=== PATIENT | female | born 1955 | race Caucasian/White ===

== ENCOUNTER 2020-05-20 02:39 | Outpatient (CLI) | payer OTHER, SELFPAY ==
[2020-05-20 18:57] LABS: SARS-CoV-2 RNA PCR Negative
== END 2020-05-20 02:40 | disposition home or self-care (01) ==
LOC: ANHCOVIDDT 02:39
PROVIDERS: PCP Internal Medicine; Visit Provider Internal Medicine Gastroenterology
DX: Z01.812 Encounter for preprocedural laboratory examination (principal); Z11.59 Encounter for screening for other viral diseases
CPT/HCPCS: 87635; C9803; U0003

== ENCOUNTER 2020-05-23 00:57 | Day surgery (SDC) | payer OTHER, SELFPAY ==
[2020-05-16 11:19] VITALS: BMI 31.6
[2020-05-23 06:30] VITALS: BP 156/82; PULSE 67; RESP 18; TEMP 36.7; O2SAT 99
[2020-05-23] MEDS: LACTATED RINGERS 1,000 ML 150 ML IV CONT (06:37)
--- NOTE | 2020-05-23 07:04 | WPDANESEPPF ---
Anes - Initial Pre Proc Eval Procedure: Operation Date: 05/23/20 07:30 Proposed Procedures p Screening Colonoscopy - Reginaldo Kate MD Date/Time: 05/23/20 07:04 Surgeon: Reginaldo Kate MD Pre Op Diagnosis: neoplasm screening, hx colon polyps Patient Data Age: 65 Gender: F Height: 5 ft 1 in Weight: 76.6 kg Last Vital Signs Temp 98.0 F 05/23/20 06:30 Pulse 67 05/23/20 06:30 Resp 18 05/23/20 06:30 BP 156/82 H 05/23/20 06:30 Pulse Ox 99 05/23/20 06:30 Allergies Allergy/AdvReac Type Severity Reaction Status Date / Time poison valencia extract Allergy Intermediate RASH, Verified 05/23/20 06:22 ALWAYS REQUIRES PREDNISONE Home Medications Medication Instructions Recorded Confirmed Type cholecalciferol (vitamin D3) 1,250 1,250 mcg PO DAILY 10/29/19 05/23/20 History mcg (50,000 unit) capsule niacin 500 mg tablet,extended 500 mg PO QAM 10/29/19 05/23/20 History release omega-3 fatty acids 1,000 mg 2,000 mg PO BID cap 10/29/19 05/23/20 History capsule Caltrate 600 plus D 600 mg PO DAILY 05/16/20 05/23/20 History ginkgo biloba 120 mg PO DAILY 05/16/20 05/23/20 History lutein 40 mg PO DAILY 05/16/20 05/23/20 History magnesium oxide 400 mg PO DAILY 05/16/20 05/23/20 History multivit with min-folic acid 0.4 mg PO DAILY 05/16/20 05/23/20 History [Adult One Daily Multivitamin] Patient hx anesthesia problems: none Family hx anesthesia problems: none PMFSH Social History Social History Smoking status: Never smoker Smoking end date: 10/14/78 Alcohol intake: current Gender identity (if verbalized by the patient): Female Anes - Eval Final PreProcedure Day of Procedure 05/23/20 07:04 Patient weight: overweight Heart: regular rate and rhythm Lungs: clear to auscultation Airway: Mallampati scale class II Neurological: alert and oriented Last oral intake: >/= 8 hours ASA classification: II Emergent: no Anesthetic plan: proceed Anesthesia type and monitoring: general GIVS and standard monitoring Informed Consent: The patient's anesthetic plan and its attendant risks and benefits were discussed with the patient/family/POA. Questions were solicited and answers provided to the satisfaction of the patient/family/POA.
[2020-05-23] MEDS: SIMETHICONE ORAL SUSPENSION 20 MG/0.3 ML 30 ML BOTTLE 0.6 ML IRRIGATION (07:35)
--- NOTE | 2020-05-23 07:46 | P.CONGI_ITS ---
Assessment and Plan Assessment and plan (1) Hx of colonic polyps: Code(s): Z86.010 - Personal history of colonic polyps Status: Acute Assessment and Plan: Patient has a history of large colon polyp requiring surgical resection 2005. Patient presents today for surveillance colonoscopy. Advised surveillance colonoscopy at 5 year intervals. High-fiber diet suggested. GI Consult Note Consult date/time: 05/23/20 07:46 HPI: Sarah Desai is a 65 year old female seen in evaluation at the request of Dr Rommel Lamas.Patient presents for surveillance colonoscopy. Patient's current weight appetite bowel movements are normal. She has a history of a large colon polyp removed surgically by Dr. Will in 2005. Her current weight appetite bowel movements are normal. Last exam 5 years ago was unremarkable. She states that there is no blood in her stools. Her bowel habits are regular. Her weight has remained stable. Review of Systems Review of Systems: All systems reviewed & are unremarkable except as noted in HPI and below PMFSH Past Medical History Medical History Hx of colonic polyps Vitamin D deficiency Family History Family History Mother Family history of malignant neoplasm of ovary Family history of malignant neoplasm of uterus Father Family history of alcoholism Grandparent Cerebrovascular accident Social History Social History Smoking status: Never smoker Smoking end date: 10/14/78 Alcohol intake: current Gender identity (if verbalized by the patient): Female Meds Home Medications and Allergies Home Medications Medication Instructions Recorded Confirmed Type cholecalciferol (vitamin D3) 1,250 1,250 mcg PO DAILY 10/29/19 05/23/20 History mcg (50,000 unit) capsule niacin 500 mg tablet,extended 500 mg PO QAM 10/29/19 05/23/20 History release omega-3 fatty acids 1,000 mg 2,000 mg PO BID cap 10/29/19 05/23/20 History capsule Caltrate 600 plus D 600 mg PO DAILY 05/16/20 05/23/20 History ginkgo biloba 120 mg PO DAILY 05/16/20 05/23/20 History lutein 40 mg PO DAILY 05/16/20 05/23/20 History magnesium oxide 400 mg PO DAILY 05/16/20 05/23/20 History multivit with min-folic acid 0.4 mg PO DAILY 05/16/20 05/23/20 History [Adult One Daily Multivitamin] Allergies Allergy/AdvReac Type Severity Reaction Status Date / Time poison valencia extract Allergy Intermediate RASH, Verified 05/23/20 06:22 ALWAYS REQUIRES PREDNISONE Vital Signs Vital Signs - 24 hr 05/23/20 06:30 Temperature 98.0 F Pulse Rate 67 Respiratory Rate 18 Blood Pressure 156/82 H Pulse Oximetry 99 Exam Narrative: Exam Narrative: Physical exam reveals patient to be alert. Vital signs stable. HEENT exam unremarkable. Lungs are clear to auscultation and per cussion. Heart is without murmur or extra sounds. Abdominal exam bowel sounds are present soft nontender with no hepatosplenomegaly. Digital external rectal exam normal.
[2020-05-23 07:48] VITALS: BP 110/57; PULSE 63; RESP 18; O2SAT 96
[2020-05-23 07:58] VITALS: BP 109/57; PULSE 62; RESP 14; O2SAT 96
[2020-05-23 08:08] VITALS: BP 118/68; PULSE 61; RESP 14; O2SAT 100
== END 2020-05-23 08:40 | disposition home or self-care (01) ==
PROVIDERS: PCP Internal Medicine; Visit Provider Internal Medicine Gastroenterology
PROC: 0DJD8ZZ Inspection of Lower Intestinal Tract, Via Natural or Artificial Opening Endoscopic (ICD-10-PCS; CPT 45378; principal; 2020-05-23 07:30)
DX: Z12.11 Encounter for screening for malignant neoplasm of colon (principal); D12.5 Benign neoplasm of sigmoid colon; K63.5 Polyp of colon; E55.9 Vitamin D deficiency, unspecified
CPT/HCPCS: 45385; 88305; J2704; J7120

== ENCOUNTER → 2020-12-02 09:14 | Outpatient (CLI) | payer OTHER, SELFPAY ==
--- NOTE | ~2020-12-02 | XR_ITS ---
XR ankle RT min 3V DATE: 12/02/2020 09:34 INDICATION: Fall. Right ankle injury, pain TECHNIQUE: 4 views COMPARISON: None FINDINGS: There is a nondisplaced transverse fracture of the lateral malleolus. There is soft tissue swelling of the ankle, greater laterally. The medial and posterior malleoli are intact. Ankle mortise is preserved. Prominent plantar calcaneal enthesopathy. IMPRESSION: Nondisplaced transverse lateral malleolar fracture Reviewed, dictated and finalized at location B. ONS DESIGNER
== END ==
PROVIDERS: PCP Internal Medicine; Visit Provider Internal Medicine
DX: S82.64XA Nondisplaced fracture of lateral malleolus of right fibula, initial encounter for closed fracture (principal); W19.XXXA Unspecified fall, initial encounter
CPT/HCPCS: 73610

== ENCOUNTER → 2021-01-02 10:57 | Outpatient (CLI) | payer OTHER, SELFPAY ==
[2021-01-02 13:37] LABS: Influenza Control Positive
[2021-01-03 00:22] LABS: SARS-CoV-2 RNA PCR Negative
== END ==
PROVIDERS: PCP Internal Medicine; Visit Provider Internal Medicine
DX: R68.89 Other general symptoms and signs (principal); Z20.822 Contact with and (suspected) exposure to COVID-19
CPT/HCPCS: 87804; C9803; U0003; U0005

== ENCOUNTER → 2021-01-04 10:00 | Outpatient (CLI) | payer OTHER, SELFPAY ==
[2021-01-04 23:58] LABS: SARS-CoV-2 RNA PCR Negative
== END ==
PROVIDERS: PCP Internal Medicine; Visit Provider Internal Medicine
DX: R43.2 Parageusia (principal); R50.9 Fever, unspecified; Z20.822 Contact with and (suspected) exposure to COVID-19
CPT/HCPCS: C9803; U0003; U0005

== ENCOUNTER 2021-03-08 13:10 | Outpatient (CLI) | payer MEDICARE, SELFPAY ==
--- NOTE | ~2021-03-08 | US_ITS ---
EXAMINATION: US abdomen limited DATE: 03/08/2021 13:38 INDICATION: Other specified abnormal findings of blood chemistry. TECHNIQUE: Multiple grayscale and Doppler ultrasound images of the abdomen were obtained. COMPARISON: None FINDINGS: The visualized portions of the head, body, and tail of the pancreas are normal. The liver i s normal without focal lesion. No liver surface nodularity. There is normal flow in main portal vein. The gallbladder is normal in size. No gallstones or gallbladder wall thickening. There is no sonogra phic Riggs sign. The common duct is normal and measures 3 mm. IMPRESSION: 1. Normal right upper quadrant ultrasound. Reviewed, dictated and finalized at location B.
== END 2021-03-08 13:11 | disposition home or self-care (01) ==
LOC: ANHIMG 13:12
PROVIDERS: PCP Internal Medicine; Visit Provider Internal Medicine
DX: R79.89 Other specified abnormal findings of blood chemistry (principal)
CPT/HCPCS: 76705

== ENCOUNTER 2021-08-28 08:16 | Outpatient (CLI) | payer MEDICARE, SELFPAY ==
--- NOTE | ~2021-08-28 | XR_ITS ---
XR ankle LT 2V DATE: 08/28/2021 08:35 INDICATION: Medial ankle pain for 6 weeks. No injury. TECHNIQUE: 2 views COMPARISON: None FINDINGS: Mild medial soft tissue swelling. There is osteoarthritis at the tibiotalar joint. Prominent plantar and mild posterior calcaneal enthesopathy. No fracture or dislocation of the ankle or disruption of ankle mortise. No periosteal reaction or bon e destruction. 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 ET WORKER
== END 2021-08-28 08:17 | disposition home or self-care (01) ==
PROVIDERS: PCP Internal Medicine; Visit Provider Internal Medicine
DX: M25.572 Pain in left ankle and joints of left foot (principal); M77.32 Calcaneal spur, left foot; M79.89 Other specified soft tissue disorders
CPT/HCPCS: 73600

== ENCOUNTER 2022-06-11 10:31 | Outpatient (CLI) | payer MEDICARE, SELFPAY ==
--- NOTE | ~2022-06-11 | XR_ITS ---
XR chest 2V DATE: 06/11/2022 10:52 INDICATION: Cough, chest tightness, drainage for 2 weeks TECHNIQUE: PA and lateral views COMPARISON: 12/24/2018 PA and lateral chest FINDINGS: Normal heart size. No hilar or mediastinal enlargement. Persistent mild bilateral pulmonary hyperinflation. No pulmonary infiltrate or consolidation, pleural effusion or pulmonary vascular con gestion or pneumothorax. There is mild thoracic dextroscoliosis. Osteopenia. IMPRESSION: No active cardiopulmonary disease Reviewed, dictated and finalized at location B.
== END 2022-06-11 10:32 | disposition home or self-care (01) ==
PROVIDERS: PCP Internal Medicine; Visit Provider Internal Medicine
DX: R05.9 Cough, unspecified (principal)
CPT/HCPCS: 71046

== ENCOUNTER → 2022-10-11 08:33 | Outpatient (CLI) | payer MEDICARE, SELFPAY ==
--- NOTE | ~2022-10-11 | CT_ITS ---
EXAMINATION: CT sinus wo con DATE: 10/11/2022 09:07 INDICATION: Chronic sinusitis TECHNIQUE: Computed tomography (CT) of the paranasal sinuses was performed without intravenous contra st. The dose-length product (DLP) was 371.61 mGy-cm. Iterative reconstruction was used. COMPARISON: None FINDINGS: There is normal development and pneumatization of the paranasal sinuses. There is mild muco bruna thickening in the lateral aspect of the left frontal sinus. There is minimal opacification in the posterior aspect of the right ethmoidal air cells. Mild mucosal thickening is seen inferiorly in the left maxillary sinus. The paranasal sinuses are otherwise clear. The bilateral ostiomeatal complexes are patent. Visualized soft tissues are unremarkable. IMPRESSION: 1. Mild sinus disease as detailed above. Reviewed, dictated and finalized at location L. ILITY CLAIMS REPRESENTATIVE
== END ==
PROVIDERS: PCP Internal Medicine; Visit Provider Internal Medicine
DX: J32.9 Chronic sinusitis, unspecified (principal)
CPT/HCPCS: 70486

== ENCOUNTER 2023-01-28 08:00 | Outpatient (CLI) | payer MEDICARE, SELFPAY ==
--- NOTE | ~2023-01-28 | XR_ITS ---
XR sinus min 3V DATE: 01/28/2023 08:20 INDICATION: Chronic right sinusitis TECHNIQUE: lima Leal, lateral, submental vertical views COMPARISON: None FINDINGS: There is mild mucoperiosteal thickening within the maxillary sinuses with suggestion of an air-fluid level on the right. The frontal, ethmoid and sphenoid sinuses appear unremarkable. The mast oid air cells appear normally developed and aerated. Normal sella turcica. IMPRESSION: Bilateral maxillary sinus mucoperiosteal thickening, possible right maxillary sinus air-f luid level Reviewed, dictated and finalized at location B. IMPRESSION: Bilateral maxillary sinus mucoperiosteal thickening, possible right maxillary sinus air-fluid level
== END 2023-01-28 08:01 | disposition home or self-care (01) ==
LOC: ANHIMG 08:06
PROVIDERS: PCP Internal Medicine; Visit Provider Internal Medicine
DX: R44.8 Other symptoms and signs involving general sensations and perceptions (principal); J32.9 Chronic sinusitis, unspecified
CPT/HCPCS: 70220

== ENCOUNTER 2023-04-11 01:03 | Day surgery (SDC) | payer MEDICARE, SELFPAY ==
--- NOTE | 2023-04-04 08:45 | PC.NURSE ---
Report to the Outpatient Waiting Room, entrance under the green pavilion located off [facility], at time __0830 on date __04/11/23 . Planned Procedure Time: __1030 . Time changes happen often and if your time is changed the preop area will call you the afternoon before. - You and your visitor will be asked to self-screen and do not enter if you have any COVID symptoms. - A mask is optional within the hospital at this time. Patients may have clear liquids (water, carbonated beverages, clear teas, apple juice) until 3 hours prior to surgery with a maximum of 20 ounces. - No food from midnight until time of surgery - Infants may have breast milk until 4 hours before surgery, infant formula 6 hours prior to surgery. - Children will be allowed to drink immediately following surgery. If applicable, please bring a bottle or sippy cup to assist with drinking. Juice, water, soda, and popsicles are readily available. For infants on formula, please bring formula the day of surgery. Pacifiers are allowed. Take the following medications with a SIP of water the morning of surgery: ____NONE DO NOT STOP ANY OF YOUR OTHER PRESCRIPTION MEDICATIONS PRIOR TO SURGERY ?EXCEPT THE FOLLOWING Medications to discontinue per physician ___ALL VITAMINS/SUPPLEMENTS 3 DAYS PRE OP.LAST DOSE 04/08/23 Please no make-up, nail lithuanian, hairspray, perfume, deodorant, or body powder the day of surgery. No jewelry (including any body piercings) or valuables the day of surgery, leave them at home. Please take a shower or bath the night before, or the morning of, surgery with an antibacterial soap. Wear comfortable, loose fitting clothing. Children are encouraged to wear pajamas. - Jewelry must be removed prior to entering the operating room. Rings and piercings that are not removed may be cut off. - The hospital will not accept responsibility for valuables. - Please leave all valuables, including medications, at home the day of surgery. If you are going home after surgery, a licensed driver supervisor must drive you home. - NO public transportation without another adult if you receive anesthesia. - We recommend that an adult stay with you for 24 hours following discharge. - We also recommend that you do not drive, make important decision, drink alcoholic beverages, or take any drugs that were not prescribed by your health care provider for at least 24 hours after your discharge time. For Pediatric surgeries, we recommend two adults accompany the child home. Follow any additional instructions given to you from your surgeon. If you or anyone in your household have experienced Covid symptoms in the past week, please notify your surgeon or the nurse liaison at the phone number below for possible testing. Telephone instructions given to ___PATIENT and asked if any additional questions and then verbalized understanding. Patient advised to call surgeon office or pre surgery nurse liaison [phone] if any additional questions.
[2023-04-04 08:51] VITALS: BMI 30.2
[2023-04-11] VITALS (8 sets, daily range): BP systolic 132–166; BP diastolic 75–88; PULSE 56–65; RESP 10–16; TEMP 36.1–36.3; O2SAT 100
--- NOTE | ~2023-04-11 | XR_ITS ---
EXAMINATION: XR surgery orthopedic DATE: 04/11/2023 12:17 INDICATION: Orthopedic procedure at the left foot TECHNIQUE: 4 fluoroscopic images of the left forefoot were obtained during procedure performed by Dr. Stanton. Radiologist was not present for the imaging or procedure. The amount of fluoroscopy time us ed during this procedure was 0.1 minutes. COMPARISON: 03/20/2023 FINDINGS: Initial image demonstrates a realignment chevron osteotomy at the neck of the first metatarsal. Subse quent images demonstrate a medial sided closing wedge osteotomy with medial sided staple fixation at the proximal metadiaphysis of the first proximal phalanx. Prior hallux valgus is reduced with near no rmal alignment to the axis of the first ray on the final images. No fractures identified. Mild polyar ticular osteoarthritis at the first metatarsophalangeal and a few interphalangeal joints. IMPRESSION: 1. Left hallux valgus correction with realignment osteotomies at the first metatarsal and first proxi mal phalanx. See procedure note for further detail. Reviewed, dictated and finalized at location A. IMPRESSION: 1. Left hallux valgus correction with realignment osteotomies at the first meta tarsal and first proximal phalanx. See procedure note for further detail.
--- NOTE | 2023-04-11 07:10 | WPDHPUPDATE1 ---
History and Physical Update Update Date/Time: 04/11/23 07:10 History and Physical has been reviewed, including an updated exam of the patient. There are NO changes in the patient's condition. Risks, benefits, and alternatives have been discussed and questions answered. Patient agrees to proceed with procedure.
[2023-04-11] MEDS: ACETAMINOPHEN 500 MG TABLET 1000 MG PO (08:45)
[2023-04-11] MEDS: LACTATED RINGERS 1,000 ML 30 ML IV CONT (09:00)
[2023-04-11] MEDS: KETOROLAC 15 MG/ML VIAL (*BKC) IV PUSH (09:14)
--- NOTE | 2023-04-11 10:01 | WPDANESEPPF ---
Anes - Initial Pre Proc Eval Procedure: Operation Date: 04/11/23 10:30 Proposed Procedures p Left Hallux Valgus Correction - Yobani Stanton MD s First Metatarsal Osteotomy, Possible Phalangeal Osteotomy - Yobani Stanton MD Date/Time: 04/11/23 10:01 Surgeon: Yobani Stanton MD Pre Op Diagnosis: Lt Hallux Valgus Patient Data Age: 68 Gender: F Height: 1.57 m Weight: 75.9 kg Last Vital Signs Temp 36.3 C L 04/11/23 08:51 Pulse 64 04/11/23 08:51 Resp 16 04/11/23 08:51 BP 153/77 H 04/11/23 08:51 Pulse Ox 100 04/11/23 08:51 O2 Del Method Room Air 04/11/23 08:51 Allergies Allergy/AdvReac Type Severity Reaction Status Date / Time poison valencia extract Allergy Intermediate RASH, Verified 04/11/23 08:37 ALWAYS REQUIRES PREDNISONE aluminum [From [place]] AdvReac Rash Verified 04/11/23 08:37 calcium [From [place]] AdvReac Rash Verified 04/11/23 08:37 cannabidiol (CBD) extract AdvReac rash Verified 04/11/23 08:37 Home Medications Medication Instructions Recorded Confirmed Type Caltrate 600 plus D 600 mg PO HS 05/16/20 04/04/23 History multivitamin with minerals-folic 0.4 mg PO DAILY 05/16/20 04/04/23 History acid 0.4 mg tablet (Adult One Daily Multivitamin) cholecalciferol (vitamin D3) 1,250 5,000 unit PO .QOD 07/14/20 04/04/23 History mcg (50,000 unit) capsule vitamin B complex 1 cap PO DAILY 11/17/20 04/04/23 History diphenhydramine HCl 25 mg capsule 25 mg PO QHS PRN Itching 03/10/21 04/04/23 History (Benadryl) melatonin 10 mg tablet 10 mg PO QHS 06/11/22 04/04/23 History azelastine 137 mcg (0.1 %) nasal 1 spray intranasal Q12H #30 mL 12/11/22 04/04/23 Rx spray aerosol latanoprost 0.005 % eye drops 1 drp EACH EYE HS 02/25/23 04/04/23 History Lactobacillus 1 cap PO DAILY 04/04/23 04/04/23 History acidophilus-Bifidobac.animalis 2.5 billion cell capsule (Daily Probiotic) ascorbic acid (vitamin C) 1,000 mg 1,000 mg PO BID 04/04/23 04/04/23 History tablet (Vitamin C With Karen Hips) fluocinonide 0.05 % topical gel 1 applic topical PRN PRN Itching 04/04/23 04/04/23 History glutamine 500 mg tablet 500 mg PO BID 04/04/23 04/04/23 History (L-Glutamine) lutein 25 mg-zeaxanthin 5 mg 1 cap PO HS 04/04/23 04/04/23 History capsule magnesium citrate 100 mg tablet 400 mg PO HS 04/04/23 04/04/23 History niacin 500 mg tablet 500 mg PO DAILY 04/04/23 04/04/23 History Patient hx anesthesia problems: none Family hx anesthesia problems: none Results Review: All pre-operative results and documents have been reviewed as part of the pre-operative evaluation. [facility] Past Medical History Medical History Achilles tendonitis Acquired hallux valgus of left foot Acquired pes planovalgus of left foot Altered taste Ankle fracture Back pain BMI 30.0-30.9,adult Cat bite of right hand Chronic sinusitis Encounter for long-term (current) use of other medications Encounter for routine adult health examination with abnormal findings Follow up Hx of colonic polyps Macular degeneration Mixed hyperlipidemia On long term care administrator drug therapy Personal history of COVID-19 Post herpetic neuralgia Posterior tibial tendon dysfunction (PTTD) of left lower extremity Shingles Vitamin B 12 deficiency Vitamin D deficiency Surgical History Surgical History History of bowel resection History of bowel resection History of hysterectomy History of rhinoplasty Family History Family History Mother Family history of malignant neoplasm of ovary Family history of malignant neoplasm of uterus Father Family history of alcoholism Grandparent Cerebrovascular accident Social History Social History Smoking packs per day: 1 Smoking cigarettes per
--- NOTE | 2023-04-11 11:04 | W.PM.PROC2 ---
Procedure Note - Detailed Date of Procedure 04/11/23 Pre-op Diagnosis Lt Hallux Valgus Post-op Diagnosis Same Procedure Performed Left hallux valgus reconstruction with double osteotomy Surgeon Yobani Stanton MD Machine Plug Shaper 1st research study assistant Anesthesia General Indications 68-year-old woman with moderate left hallux valgus deformity. Difficulty with shoe wear and weight-bearing activity. Failed conservative treatment toe strapping and inserts. Presents for operative treatment. Description of Procedure After informed consent was given, the operative extremity was marked in the preoperative holding area. The patient received intravenous antibiotics. The patient was brought to the operating room where they underwent a general anesthetic by the anesthesia team. The patient was positioned supine on the operating room table. A time-out was performed confirming the patient, site of the surgery, and the plan for surgery. The left lower extremity was then prepped and draped in the usual sterile surgical fashion using ChloraPrep skin solution. Foot and ankle were exsanguinated and a calf tourniquet was inflated to 225 mmHg pressure. A longitudinal incision was then made along the medial border of the 1st ray centered over the medial eminence with a #15 blade knife. The previous incision was utilized. Hemostasis was controlled with electric cautery. The dorsal and plantar sensory nerves were identified and retracted bluntly. A medial capsulotomy was then performed. This was reflected off the medial eminence. The joint was inspected for evaluation of degenerative changes. A lateral release was then performed through the joint with a #15 blade knife. The medial eminence was then resected with a sagittal saw in line with the medial border of the foot. Correction of the deformity was performed with a chevron-shaped osteotomy performed with sagittal saw from medial to lateral through the distal portion of the 1st metatarsal. The lateral portion of the bone cut was completed with an osteotome to protect the soft tissue. The capital fragment was then translated laterally and impacted on to the 1st metatarsal shaft. Lateral translation and impaction corrected both hallux valgus deformity and correction of the distal metatarsal articular angle. Temporary fixation was performed and alignment was verified with image intensification. Hallux valgus angle correction, intermetatarsal angle correction and distal metatarsal articular angle were verified. Fixation was achieved with 2.0 millimeter bioabsorbable pins. Two pins were utilized. Image intensification confirmed final alignment. Rotation was verified visually. The wound was then thoroughly irrigated with antibiotic solution. The capsule was repaired through a drill hole in the distal 1st metatarsal with 0 Vicryl interrupted suture. The dorsal limb of the capsule was repaired with 00 Vicryl interrupted suture. Subcutaneous tissue was repaired with 000 Monocryl interrupted suture and the skin approximated with 0000 nylon running suture. Local anesthetic with 0.5% Marcaine plain was injected in the soft tissue. Clinically and fluoroscopically there was still hallux valgus interphalangeus present. Proximal phalanx osteotomy was indicated. Medial incision made along the proximal phalanx with 15 blade knife. Hemostasis controlled electrocautery. Dissection down to the medial aspect of the proximal phalanx. Retractors placed. Sagittal saw used to make a medial closing wedge osteotomy transversely across the proximal phalanx. Image intensification confirmed placement of the osteotomy. Fixation was achieved with the Arthrex 10 millimeter x 9 millimeter staple. Good stability and fixation were noted. Image intensification confirmed final alignment of the osteotomy and placement of the hardware. Overall alignment of the 1st ray was verified. Wound was thoroughly irrigated with antibiotic solution. Soft tissue closed with 0
[2023-04-11] MEDS: ceFAZolin 2 GM/D5W 50 ML 2 GM/50 ML BAG IVPB (11:31)
[2023-04-11] MEDS: LIDOCAINE HCL 1% LOCAL INJ 20 ML VIAL INFILTRATE (12:22)
== END 2023-04-11 13:45 | disposition home or self-care (01) ==
PROVIDERS: PCP Internal Medicine; Visit Provider Orthopaedic Surgery
PROC: (CPT 28299; principal; 2023-04-11 10:30)
PROC: (CPT 28750; 2023-04-11 10:30)
DX: M20.12 Hallux valgus (acquired), left foot (principal); E78.2 Mixed hyperlipidemia; E53.8 Deficiency of other specified B group vitamins; E55.9 Vitamin D deficiency, unspecified; F17.210 Nicotine dependence, cigarettes, uncomplicated
CPT/HCPCS: 28299; 99199; A9270; C1713; J0690; J1100; J1885; J2250; J2405; J2704; J3010; J7120

== ENCOUNTER 2023-04-30 01:04 | Day surgery (SDC) | payer MEDICARE, SELFPAY ==
[2023-04-17 12:50] VITALS: BMI 30.2
--- NOTE | 2023-04-17 13:08 | PC.NURSE ---
Report to the Outpatient Waiting Room, entrance under the green pavilion located off [facility], at time __10:00am on date __04/30/23 . Planned Procedure Time: __12:00pm . Time changes happen often and if your time is changed the preop area will call you the afternoon before. - You and your visitor will be asked to self-screen and do not enter if you have any COVID symptoms. - A mask is optional within the hospital at this time. Patients may have clear liquids (water, carbonated beverages, clear teas, apple juice) until 3 hours prior to surgery with a maximum of 20 ounces. - No food from midnight until time of surgery Take the following medications with a SIP of water the morning of surgery: __NONE DO NOT STOP ANY OF YOUR OTHER PRESCRIPTION MEDICATIONS PRIOR TO SURGERY ?EXCEPT THE FOLLOWING Medications to discontinue per physician __HOLD ALL VITAMINS/SUPPLEMENTS 3 DAYS PRE-OP PER ANESTHESIA Date to take last dose 04/26/23 Please no make-up, nail kazakh, hairspray, perfume, deodorant, or body powder the day of surgery. No jewelry (including any body piercings) or valuables the day of surgery, leave them at home. Please take a shower or bath the night before, or the morning of, surgery with an antibacterial soap. Wear comfortable, loose fitting clothing. Children are encouraged to wear pajamas. - Jewelry must be removed prior to entering the operating room. Rings and piercings that are not removed may be cut off. - The hospital will not accept responsibility for valuables. - Please leave all valuables, including medications, at home the day of surgery. If you are going home after surgery, a licensed driver engineer must drive you home. - NO public transportation without another adult if you receive anesthesia. - We recommend that an adult stay with you for 24 hours following discharge. - We also recommend that you do not drive, make important decision, drink alcoholic beverages, or take any drugs that were not prescribed by your health care provider for at least 24 hours after your discharge time. Follow any additional instructions given to you from your surgeon. If you or anyone in your household have experienced Covid symptoms in the past week, please notify your surgeon or the nurse liaison at the phone number below for possible testing. Telephone instructions given to __PATIENT and asked if any additional questions and then verbalized understanding. Patient advised to call surgeon office or pre surgery nurse liaison [phone] if any additional questions.
--- NOTE | 2023-04-29 18:02 | PM.IMHP ---
H&P: HPI History of Present Illness Date/Time: 04/29/23 18:02 Chief Complaint: Chronic sinusitis septal deviation turbinate hypertrophy Narrative: planned procedure Review of Systems Review of Systems: All systems reviewed & are unremarkable except as noted in HPI and below [facility] Past Medical History Medical History (Updated 04/29/23 @ 18:03 by Ángel Gregory MD) Achilles tendonitis Acquired hallux valgus of left foot Acquired pes planovalgus of left foot Altered taste Ankle fracture Back pain BMI 30.0-30.9,adult Cat bite of right hand Chronic sinusitis Encounter for long-term (current) use of other medications Encounter for postoperative care Encounter for routine adult health examination with abnormal findings Follow up Hx of colonic polyps Macular degeneration Mixed hyperlipidemia On predatory animal exterminator drug therapy Personal history of COVID-19 Post herpetic neuralgia Posterior tibial tendon dysfunction (PTTD) of left lower extremity Shingles Vitamin B 12 deficiency Vitamin D deficiency Surgical History Surgical History History of bowel resection History of bowel resection History of hysterectomy History of rhinoplasty Family History Family History Mother Family history of malignant neoplasm of ovary Family history of malignant neoplasm of uterus Father Family history of alcoholism Grandparent Cerebrovascular accident Social History Social History Smoking packs per day: 1 Smoking cigarettes per day: 20.0 Years smoked: 4 Smoking pack-years: 4.00 Smoking status: Former smoker Tobacco type: cigarettes Second hand tobacco smoke exposure: No Smoking end date: 04/13/79 Alcohol intake: current Drinks per week: 14 Substance use: never Lack of Transportation: No Lack of Food: Never True Current Housing: I Have Housing Concerned About Future Housing: No Difficulty Paying Gas/Electric Bills: No Difficulty Paying for Meds: No Currently Unemployed: No Education: Associate Degree Difficulty w/ Childcare or Family Care: No Living arrangements: alone Gender identity (if verbalized by the patient): Female Spiritual care concerns: No Meds Home Medications and Allergies Home Medications Medication Instructions Recorded Confirmed Type multivitamin with minerals-folic 0.4 mg PO DAILY 05/16/20 04/17/23 History acid 0.4 mg tablet (Adult One Daily Multivitamin) vitamin B complex 1 cap PO DAILY 11/17/20 04/17/23 History diphenhydramine HCl 25 mg capsule 25 mg PO QHS PRN Itching 03/10/21 04/17/23 History (Benadryl) melatonin 10 mg tablet 10 mg PO QHS 06/11/22 04/17/23 History azelastine 137 mcg (0.1 %) nasal 1 spray intranasal Q12H #30 mL 12/11/22 04/17/23 Rx spray aerosol latanoprost 0.005 % eye drops 1 drp EACH EYE HS 02/25/23 04/17/23 History Lactobacillus 1 cap PO DAILY 04/04/23 04/17/23 History acidophilus-Bifidobac.animalis 2.5 billion cell capsule (Daily Probiotic) ascorbic acid (vitamin C) 1,000 mg 1,000 mg PO BID 04/04/23 04/17/23 History tablet (Vitamin C With Karen Hips) fluocinonide 0.05 % topical gel 1 applic topical PRN PRN Itching 04/04/23 04/17/23 History glutamine 500 mg tablet 500 mg PO BID 04/04/23 04/17/23 History (L-Glutamine) lutein 25 mg-zeaxanthin 5 mg 1 cap PO HS 04/04/23 04/17/23 History capsule magnesium citrate 100 mg tablet 400 mg PO HS 04/04/23 04/17/23 History niacin 500 mg tablet 500 mg PO DAILY 04/04/23 04/17/23 History ibuprofen 800 mg tablet 800 mg PO TID PRN pain #30 tabs 04/11/23 04/17/23 Rx calcium carbonate 600 mg calcium 600 mg PO DAILY 04/17/23 04/17/23 History (1,500 mg) tablet cholecalciferol (vitamin D3) 125 125 mcg PO DAILY 04/17/23 04/17/23 History mcg (5,000 unit) capsule Allergies Allergy/AdvReac Type S
[2023-04-30] VITALS (13 sets, daily range): BP systolic 146–196; BP diastolic 65–96; PULSE 56–77; RESP 12–23; TEMP 35.8–36.2; O2SAT 97–100
--- NOTE | 2023-04-30 07:38 | WPDHPUPDATE1 ---
History and Physical Update Update Date/Time: 04/30/23 07:38 History and Physical has been reviewed, including an updated exam of the patient. There are NO changes in the patient's condition. Risks, benefits, and alternatives have been discussed and questions answered. Patient agrees to proceed with procedure.
[2023-04-30] MEDS: ACETAMINOPHEN 500 MG TABLET 1000 MG PO (08:24)
[2023-04-30] MEDS: LACTATED RINGERS 1,000 ML 30 ML IV CONT ×2 (08:30→12:01)
--- NOTE | 2023-04-30 09:17 | WPDANESEPPF ---
Anes - Initial Pre Proc Eval Procedure: Operation Date: 04/30/23 10:00 Proposed Procedures p Image Guided Bilateral Inferior Turbinectomy With Outfracture, Bilateral Maxillary Antrostomy Without Tissue Removal, Left Anterior Ethmoidectomy, Right Total Ethmoidectomy - Ángel Gregory MD s Endoscopic Septoplasty - Ángel Gregory MD Date/Time: 04/30/23 09:17 Surgeon: Ángel Gregory MD Pre Op Diagnosis: Chr Sinusitis Patient Data Age: 68 Gender: F Height: 1.57 m Weight: 75.8 kg Last Vital Signs Temp 36.2 C L 04/30/23 08:10 Pulse 71 04/30/23 08:10 Resp 18 04/30/23 08:10 BP 158/69 H 04/30/23 08:10 Pulse Ox 100 04/30/23 08:10 O2 Del Method Room Air 04/30/23 08:10 Allergies Allergy/AdvReac Type Severity Reaction Status Date / Time poison valencia extract Allergy Intermediate RASH, Verified 04/30/23 08:29 ALWAYS REQUIRES PREDNISONE aluminum [From [place]] AdvReac Rash, Verified 04/30/23 08:29 REDNESS cannabidiol (CBD) extract AdvReac rash, RASH Verified 04/30/23 08:29 Home Medications Medication Instructions Recorded Confirmed Type multivitamin with minerals-folic 0.4 mg PO DAILY 05/16/20 04/30/23 History acid 0.4 mg tablet (Adult One Daily Multivitamin) vitamin B complex 1 cap PO DAILY 11/17/20 04/30/23 History diphenhydramine HCl 25 mg capsule 25 mg PO QHS PRN Itching 03/10/21 04/30/23 History (Benadryl) melatonin 10 mg tablet 10 mg PO QHS 06/11/22 04/30/23 History azelastine 137 mcg (0.1 %) nasal 1 spray intranasal Q12H #30 mL 12/11/22 04/30/23 Rx spray aerosol latanoprost 0.005 % eye drops 1 drp EACH EYE HS 02/25/23 04/30/23 History Lactobacillus 1 cap PO DAILY 04/04/23 04/30/23 History acidophilus-Bifidobac.animalis 2.5 billion cell capsule (Daily Probiotic) ascorbic acid (vitamin C) 1,000 mg 1,000 mg PO BID 04/04/23 04/30/23 History tablet (Vitamin C With Karen Hips) fluocinonide 0.05 % topical gel 1 applic topical PRN PRN Itching 04/04/23 04/30/23 History glutamine 500 mg tablet 500 mg PO BID 04/04/23 04/30/23 History (L-Glutamine) lutein 25 mg-zeaxanthin 5 mg 1 cap PO HS 04/04/23 04/30/23 History capsule magnesium citrate 100 mg tablet 400 mg PO HS 04/04/23 04/30/23 History niacin 500 mg tablet 500 mg PO DAILY 04/04/23 04/30/23 History ibuprofen 800 mg tablet 800 mg PO TID PRN pain #30 tabs 04/11/23 04/30/23 Rx calcium carbonate 600 mg calcium 600 mg PO DAILY 04/17/23 04/30/23 History (1,500 mg) tablet cholecalciferol (vitamin D3) 125 125 mcg PO DAILY 04/17/23 04/30/23 History mcg (5,000 unit) capsule Patient hx anesthesia problems: none Family hx anesthesia problems: none Results Review: All pre-operative results and documents have been reviewed as part of the pre-operative evaluation. [facility] Past Medical History Medical History (Updated 04/29/23 @ 18:03 by Ángel Gregory MD) Achilles tendonitis Acquired hallux valgus of left foot Acquired pes planovalgus of left foot Altered taste Ankle fracture Back pain BMI 30.0-30.9,adult Cat bite of right hand Chronic sinusitis Encounter for long-term (current) use of other medications Encounter for postoperative care Encounter for routine adult health examination with abnormal findings Follow up Hx of colonic polyps Macular degeneration Mixed hyperlipidemia On retirement drug therapy Personal history of COVID-19 Post herpetic neuralgia Posterior tibial tendon dysfunction (PTTD) of left lower extremity Shingles Vitamin B 12 deficiency Vitamin D deficiency Surgical History Surgical History History of bowel resection History of bowel resection History of hysterectomy History of rhinoplasty Family History Family History Mother Family history of malignant neoplasm of ovary Family history of malignant neoplasm of uterus Father Family history of alcoholism
[2023-04-30] MEDS: ceFAZolin 2 GM/D5W 50 ML 2 GM/50 ML BAG IVPB (10:26)
[2023-04-30] MEDS: MUPIROCIN 2% OINT 22 GM TUBE 1 APPLIC TOPICAL (11:21)
[2023-04-30] MEDS: OXYMETAZOLINE HCL 0.05% NAS 15 ML BTL (*BKC) 1 SPRAY NASAL (11:22)
[2023-04-30] MEDS: HYDROmorphone HCL INJ (*CRX) 1 MG/ML SYR 0.25 MG IV PUSH (12:21)
[2023-04-30] MEDS: hydrALAZINE HCL 20 MG/ML VIAL 10 MG IV PUSH (12:42)
--- NOTE | 2023-04-30 13:02 | P.OP_ITS ---
Procedure Note - Detailed Date of Procedure 04/30/23 Pre-op Diagnosis Chr Sinusitis Post-op Diagnosis Same Procedure Performed Image guided right-sided endoscopic maxillary antrostomy total ethmoidectomy image guided endoscopic left-sided maxillary antrostomy Surgeon Ángel Gregory MD Anesthesia General Indications see above Findings fairly disease right posterior ethmoid cell the remainder of the cells had mild disease nothing major. Description of Procedure Patient identified consent verified preop. Patient brought operating. Time- out performed. General anesthesia induced endotracheal tube secured. Patient prepped draped positioned procedure confirmed 2nd time-out performed. Image guidance initiated confirmed. Afrin-soaked pledgets placed bilateral lateral sit 5 minutes. Right-sided operated on 1st middle turbinate medialized maxillary antrostomy performed under image guidance with backbiter straight through cut double ball tip probe and microdebrider image guided. Ethmoidectomy performed with Kerrison and microdebrider disease cell was located far this back in the ethmoid air cells thick mucus mucus was suctioned out. Air cell widely open. No damage to orbit no damage to skull base no damage to septum. Procedure was repeated on the left side for the maxillary antrostomy performed with double ball tip probe image guidance straight through cut backbiter. Minimally diseased mucosa anterior ethmoid investigated through the bulla and up into the frontal outflow very very minimally diseased. Wounds were copiously irrigated out Nova pack placed bilaterally patient tolerated the procedure well. Blood loss about 25 cc. Care the patient back to Anesthesiology no complications. Estimated Blood Loss 25 Drains No Packing Yes (Novapak) Pathology None sent Complications No immediate complications Condition Stable Disposition PACU [facility] Billing Surgery - Charge Forward: Surgery Billing
== END 2023-04-30 14:18 | disposition home or self-care (01) ==
PROVIDERS: PCP Internal Medicine; Visit Provider Otolaryngology
PROC: (CPT 31255; principal; 2023-04-30 10:00)
PROC: (CPT 30520; 2023-04-30 10:00)
DX: J32.9 Chronic sinusitis, unspecified (principal); J34.3 Hypertrophy of nasal turbinates; J34.2 Deviated nasal septum; E78.2 Mixed hyperlipidemia; E53.8 Deficiency of other specified B group vitamins; E55.9 Vitamin D deficiency, unspecified; Z90.49 Acquired absence of other specified parts of digestive tract; Z87.891 Personal history of nicotine dependence; E66.9 Obesity, unspecified; Z68.30 Body mass index [BMI] 30.0-30.9, adult
CPT/HCPCS: 31255; 31256; 61782; 31254; A9270; J0360; J0690; J1100; J1170; J2250; J2270; J2405; J2704; J2710; J7120

== ENCOUNTER 2024-02-28 07:22 | Outpatient (CLI) | payer MEDICARE, SELFPAY ==
--- NOTE | ~2024-02-28 | MM_ITS ---
EXAMINATION: MM screening cosmo BI w anahy HISTORY: Screening mammogram TECHNIQUE: Craniocaudal and mediolateral oblique 3-D tomosynthesis images were obtained and synthetic 2-D images were generated. CAD analysis was submitted and interpreted. COMPARISON: January 13, 2019 bilateral screening mammogram BREAST PARENCHYMAL COMPOSITION: The breasts are almost entirely fatty. FINDINGS: There is no evidence of suspicious mass, calcification, or architectural distortion to sugg est malignancy in either breast. There has been no suspicious interval change. IMPRESSION: 1. No mammographic evidence of malignancy. 2. Recommend routine screening mammography in one year. BI-RADS Category 1: Negative Reviewed, dictated and finalized at location B.
== END 2024-02-28 07:23 ==
LOC: MICIMG 07:25
PROVIDERS: PCP Internal Medicine; Visit Provider Internal Medicine
DX: Z12.31 Encounter for screening mammogram for malignant neoplasm of breast (principal)
CPT/HCPCS: 77063; 77067

== ENCOUNTER 2024-10-05 10:30 | Outpatient (CLI) | payer MEDICARE, SELFPAY ==
--- NOTE | ~2024-10-05 | CT_ITS ---
CT soft tissue neck w con Ordering provider: Rommel Lamas MD History: 69 years Female with . R22.1 - Localized swelling, mass and lump, neck . Comparison: None. Technique: CT soft tissues neck was performed with contrast. . Automated exposure control and iterat gem reconstruction technique were employed. The dose-length product was 456.80 mGy-cm. 75 mL Omnipaque 350 was given IV. Findings: LOWER HEAD: The visualized brain parenchyma, optic globes/orbits and mastoids are normal. The visua lized paranasal sinuses are well aerated. SALIVARY GLANDS: Normal. THYROID: Normal. SUPRAHYOID DEEP SPACES: Parapharyngeal lymph nodes are seen larger balloon on the left side measuring 1.3 cm. On the right side measures 1.2 cm. Small lymph nodes are seen in the posterior triangles. CAROTID ARTERIES: Normal. JUGULAR VEINS: Filling defect is seen in the left jugular vein which may be blood mixing versus throm bus. Ultrasound evaluation advised.0 TONSILS: Normal. ORAL CAVITY: Partially obscured by dental amalgam but normal as visualized. PHARYNX, LARYNX AND TRACHEA: Patent and normal. No prevertebral soft tissue swelling. SUPERFICIAL SOFT TISSUES: Normal. No lymphadenopathy or neck mass. THORACIC INLET/VISUALIZED UPPER CHEST: Normal. SKELETAL: Age appropriate degenerative changes. IMPRESSION: 1. Slightly enlarged lymph nodes in the parapharyngeal spaces. 2. Possible thrombus in the left internal jugular vein. Ultrasound evaluation advised. Reviewed, dictated and finalized at location A. OR SQL DBA
--- NOTE | ~2024-10-05 | US_ITS ---
EXAMINATION: US venous doppler UE LT DATE: 10/05/2024 10:15 INDICATION: Abnormal appearance to the left internal jugular vein on prior contrast enhanced CT suspi cious for thrombus. TECHNIQUE: Grayscale images without and with compression and Doppler images of the left internal jugu lar and subclavian veins were obtained. COMPARISON: None. FINDINGS/IMPRESSION: The left internal jugular and subclavian veins are patent. No evident thrombus. The appearance on brennan or CT likely related to phase of contrast and inflow artifact from the less opacified blood in the le ft facial vein. Reviewed, dictated and finalized at location B. FACTURING MAINTENANCE MANAGER
[2024-10-05 08:42] LABS: Estimated Glomerular Filt Rate > 60
[2024-10-05 09:27] LABS: Strep Group A RT-PCR NOT DETECTED (Negative)
[2024-10-05 10:46] LABS: Basophils Absolute Auto 0.1 K/mm3 (0.0-0.1); Basophils Percent Auto 0.7 % (0.2-1.2); Eosinophils Absolute Auto 0.1 K/mm3 (0-0.3); Eosinophils Percent Auto 1.4 % (0-4.4); Hematocrit 43.5 % (37.0-47.0); Hemoglobin 14.6 g/dL (12.0-15.0); Immature Granulocyte Absolute 0.05 K/mm3 (0.00-0.031); Immature Granulocyte Percent A 0.6 % (0-0.5); Lymphocytes Percent Auto 12.5 % (18.3-44.2); Mean Corpuscular HGB Conc 33.6 g/dl (32-36); Mean Corpuscular Hemoglobin 31.1 pg (26-34); Mean Corpuscular Volume 92.6 fl (80-100); Mean Platelet Volume 9.6 fl (7.4-10.4); Monocytes Absolute Auto 0.9 K/mm3 (0.1-0.6); Monocytes Percent Auto 10.3 % (2.6-8.5); Neutrophils Absolute Auto 6.6 K/mm3 (1.3-6.7); Neutrophils Percent Auto 74.5 % (45.5-73.1); Platelet Count Result 281 k/mm3 (150-375); Red Cell Distribution Width 12.5 % (11.5-14.5); White Blood Count 8.8 K/mm3 (4.5-10.0)
[2024-10-05 10:59] LABS: Prothrombin Time 13.1 Seconds (11.1-14.7)
--- OUTSIDE RECORDS SUMMARY | 2024-10-12 15:16 | XMS_ITS | Encounter Summary ---
Author Organization [facility] Address [address] [place] [address]. [place], [place] [id number] [place] [id number] Care Team Providers Care Gold Layer Name Role Phone Rommel Dixon MD Unavailable Rommel Dixon MD Primary Care Provider [phone] Reason for Referral * Imaging (Routine) - Closed Specialty Diagnoses / Procedures Referred By Contac t Referred To Contact RADIOLOGY Diagnoses Abnormal finding of blood chemistry, unspecified Mixed hyperlipidemia Procedures CT HEART DIAG CALCIUM SCORE Rommel Dixon MD [address] [place] [address] Phone: tel: fax: Referral ID Status Reason Start Date Expiration Date Visits Re quested Visits Authorized [id number] Closed 08/12/2023 08/12/2024 1 1 ENRICHMENT MANAGER Reason for Visit * Imaging (Routine) - Closed Specialty Diagnoses / Procedures Referred By Contac t Referred To Contact RADIOLOGY Diagnoses Abnormal finding of blood chemistry, unspecified Mixed hyperlipidemia Procedures CT HEART DIAG CALCIUM SCORE Rommel Dixon MD [address] [place] [address] Phone: tel: fax: Referral ID Status Reason Start Date Expiration Date Visits Re quested Visits Authorized [id number] Closed 08/12/2023 08/12/2024 1 1 Encounter Details Date Type Department Care Team (Latest Contact Info) Description 09/19/2023 7:40 AM LIFE ENRICHMENT MANAGER - 09/19/2023 11:59 PM LIFE ENRICHMENT MANAGER Hospital Encounter [facility] [address] [place] [address] Rommel Dixon MD [address] [place] [address] Discharge Disposition: Home or Self Care (Routine Discharge) Social History Tobacco Use Types Packs/Day Years Used Date Smoking Tobacco: Never Assessed Comments Unknown Sex and Gender Information Value Date Recorded Sex Assigned at Not on file Legal Sex Female 12:02 PM CDT Gender Identity Not on file Sexual Orientation Not on file documented as of this encounter Plan of Treatment Not on file documented as of this encounter Procedures Procedure Name Priority Date/Time Associated Diagnosis Comments CT HEART DIAG CALCIUM SCORE Routine 09/19/2023 7:53 AM LIFE ENRICHMENT MANAGER Abnormal finding of blood chemistry, unspecified Mixed hyperlipidemia documented in this encounter Results * CT HEART DIAG CALCIUM SCORE (09/19/2023 7:53 AM LIFE ENRICHMENT MANAGER) Anatomical Region Laterality Modality Computed Tomogra phy 09/19/2023 3:34 PM LIFE ENRICHMENT MANAGER Impressions 09/19/2023 3:35 PM LIFE ENRICHMENT MANAGER =====IMPRESSION:===== Total Score: 0 No plaque, very low risk, very unlikely for probability of significant CAD Ordered By: ROMMEL DIXON Interpreted By: Thiago Soni MD, 09/19/2023 3:34 PM Narrative 09/19/2023 3:35 PM LIFE ENRICHMENT MANAGER EXAMINATION: Multislice Helical CT Coronary Calcium Scoring EXAM DATE/TIME: 09/19/2023 3:11 PM REASON FOR EXAM: ??Screening for heart disease ?? COMPARISON: None TECHNIQUE: ??Multislice helical CT images of the proximal coronary arteries with a computer generated calcification score. A dose lowering technique was used for this procedure, which may include, but is not limited to, dose reduction technique, automated exposure control, iterative reconstruction, ALARA (As Low As Reasonably Achievable), or Image Gently techniques. Results: Left main: 0 ?LAD: 0 Circumflex: 0 ? Right coronary: 0 ?? Total Score: 0 ? Comments: There is no mediastinal adenopathy, and there are no pulmonary nodules in the visualized portions of the chest. Calcium score guidelines: Total Score* Calcium Plaque [place] ??*Risk ?*Probability of significant CAD 0 ?No Plaque ?Very Low ? Very unlikely 1-10 ?Minimal Plaque ? Low ?Unlikely 11-100 ?Mild Plaque ?Moderate ? Low likelihood of significant ? stenosis <50% ? 101-400 ? Moderate Plaque ?Moderately High ?Moderate likelihood of ? significant stenosis (>50%) Over 400 ?Extensive Plaque ? High ?High likelihood of ?significant stenosis (>50%) The amount of coronary artery calcification correlates with the severity of coronary atherosclerosis and the probability of future significant event. Calcification is not site specific for stenosis and does not identify non-calcified atherosclerotic plaque, but rather indicates the extent of atherosclerosis in the coronary arteries overall. The score may be used as an indicator for risk factor modification or additional cardiac testing. Significant change in calcium score over time may be indicative of subsequent disease development or useful as a benchmark to assess preventative programs. Procedure Note Thiago Soni MD - 09/19/2023 EXAMINATION: Multislice Helical CT Coronary Calcium Scoring EXAM DATE/TIME: 09/19/2023 3:11 PM REASON FOR EXAM: Screening for heart disease COMPARISON: None TECHNIQUE: Multislice helical CT images of the proximal coronary arterieswith a computer generated calcification score. A dose lowering techniquewas used for this procedure, which may include, but is not limited to,dose reduction technique, automated exposure control, iterativereconstruction, ALARA (As Low As Reasonably Achievable), or Image Gentlytechniques. Results: Left main: 0 LAD: 0 Circumflex: 0 Right coronary: 0 Total Score: 0 Comments: There is no mediastinal adenopathy, and there are no pulmonarynodules in the visualized portions of the chest. Calcium score guidelines: Total Score* Calcium Plaque [place] *Risk *Probability ofsignificant CAD 0 No Plaque Very LowVery unlikely 1-10 Minimal Plaque LowUnlikely 11-100 Mild Plaque ModerateLow likelihood of significant stenosis <50% 101-400 Moderate Plaque Moderately HighModerate likelihood of significant stenosis (>50%) Over 400 Extensive Plaque HighHigh likelihood of significant stenosis (>50%) The amount of coronary artery calcification correlates with the severityof coronary atherosclerosis and the probability of future significantevent. Calcification is not site specific for stenosis and does not identify non- calcifiedatherosclerotic plaque, but rather indicates the extent of atherosclerosisin the coronary arteries overall. The score may be used as an indicator for risk factor modification oradditional cardiac testing. Significant change in calcium score over timemay be indicative of subsequent disease development or useful as a benchmark to assess preventativeprograms. =====IMPRESSION:===== Total Score: 0 No plaque, very low risk, very unlikely for probability ofsignificant CAD Ordered By: ROMMEL DIXON Interpreted By: Thiago Soni MD, 09/19/2023 3:34 PM us Rommel Dixon MD CT Final Result documented in this encounter Visit Diagnoses Diagnosis Abnormal finding of blood chemistry, unspecified Mixed hyperlipidemia documented in this encounter Care Teams Gold Layer Relationship Specialty Start Date End Date Rommel Dixon MD [address] [place] [address] PCP - General INTERNAL MEDICINE 08/13/23 Rommel Dixon MD [address] [place] [id number] INTERNAL MEDICINE 08/13/23 documented as of this encounter
--- OUTSIDE RECORDS SUMMARY | 2024-10-12 15:16 | XMS_ITS | Encounter Summary ---
Author Organization [facility] Address [address] [place] [address] Phone Care Team Providers Care Practice Business Asst Name Role Phone Rommel Lamas MD Primary Care Provider [phone] Encounter Details Date Type Department Care Team (Late st Contact Info) Description 03/19/2023 Telephone [facility] Ophthalmology [address] [facility] [place] [address] Tri Van MD [address] [facility] DEPT OPHTHALMOLOGY, [address] [place] [address] Social History Tobacco Use Types Packs/Day Years Used Date Smoking Tobacco: Unknown Comments Unknown Sex and Gender Information Value Date Recorded Sex Assigned at Not on file Legal Sex Female 3:06 PM CDT Gender Identity Not on file Sexual Orientation Not on file documented as of this encounter Miscellaneous Notes * Telephone Encounter - Marlys Au COA - 03/19/2023 4:58 PM CDT Called pt to relay below message from Dr. Van. LVM to call me back at my direct line. * Telephone Encounter - Marlys Au COA - 03/19/2023 4:57 PM CDT ----- Message from Tri Van MD sent at 03/19/2023 11:17 AM CDT ----- See my note Reviewed intraocular pressure (IOP) on latanoprost CPM for now F/U 4-5 months with Lin visual field (HVF) and OCT with me documented in this encounter Plan of Treatment Not on file documented as of this encounter Visit Diagnoses Not on filedocumented in this encounter Care Teams Practice Business Asst Relationship Specialty Start Date End Date Rommel Lamas MD [address] INTERNAL MEDICINE [place], [place] [id number] PCP - General Internal Medicine 07/09/22 documented as of this encounter
--- OUTSIDE RECORDS SUMMARY | 2024-10-12 15:16 | XMS_ITS | Encounter Summary ---
Author Organization [facility] Address [address] [place] [address] Phone Care Team Providers Care Internal Controls Specialist Name Role Phone Rommel Lamas MD Primary Care Provider [phone] Reason for Visit * Diagnostic Imaging (Routine) - Closed Specialty Diagnoses / Procedures Referred By Tessa patel Referred To Contact Diagnoses Glaucoma suspect of both eyes Procedures Lin Visual Field - OU - Both Eyes Ehsan Brown, OD [address] [facility] [address] [place] [address] Phone: tel: fax: [facility] (All Locations) Referral ID Status Reason Start Date Expiration Date Visits Re quested Visits Authorized [id number] Closed 02/05/2024 03/06/2025 1 1 Encounter Details Date Type Department Care Team (Late st Contact Info) Description 02/11/2024 10:40 AM CDT Imaging Exam [facility] Ophthalmology [address] [place] [address] 2nd Floor, [address] [place] [address] Glaucoma suspect of both eyes Social History Tobacco Use Types Packs/Day Years [...] Procedure Name Priority Date/Time Associated Diagnosis Comments LIN VISUAL FIELD - OU - BOTH EYES Routine 02/11/2024 11:22 AM CDT Glaucoma suspect of both eyes documented in this encounter Results * Lin Visual Field - OU - Both Eyes (02/11/2024 11:22 AM CDT) Pattern Deviation OS 1.40 db CONTINUUM Pattern Deviation OD 1.41 db CONTINUUM Mean Deviation OS -1.41 db CONTINUUM Mean Deviation OD -0.22 db CONTINUUM Anatomical Region Laterality Modality Head Other Narrative 02/11/2024 12:22 PM CDT Right Eye Fixation was good. Cooperation was good. Reliability was good. Progression has been stable. Foveal threshold was normal. Findings include non-specific defects. Mean Deviation was -0.22 db. Pattern Deviation was 1.41 db. Left Eye Fixation was good. Cooperation was good. Reliability was good. Progression has been stable. Foveal threshold was normal. Findings include non-specific defects. Mean Deviation was -1.41 db. Pattern Deviation was 1.40 db. Ehsan Brown OD OPHTH VISUAL FIELD Final Res ult documented in this encounter Visit Diagnoses Diagnosis Glaucoma suspect of both eyes Unspecified preglaucoma documented in this encounter Care Teams Internal Controls Specialist Relationship Specialty Start Date End Date Rommel Lamas MD [address] [facility] [address] [place] [address] PCP - General Internal Medicine 07/09/22 documented as of this encounter
--- OUTSIDE RECORDS SUMMARY | 2024-10-12 15:16 | XMS_ITS | Clinical Summary ---
Author Organization [facility] Address [address] [place] [address]. [place], [place] [address] [place] [address] Care Team Providers Care Sewage Reticulation Drafting Officer Name Role Phone Rommel Lamas MD Unavailable Rommel Lamas MD Primary Care Provider [phone] Social History Tobacco Use Types Packs/Day Years Used Date Smoking Tobacco: Never Assessed Comments Unknown Sex and Gender Information Value Date Recorded Sex Assigned at Not on file Legal Sex Female 12:02 PM CDT Gender Identity Not on file Sexual Orientation Not on file Plan of Treatment Health Maintenance Due Date Last Done Comments Colorectal Cancer Screening Colonoscopy (10 Years) 1955 Hepatitis C 02/20/1974 Mammogram Screening 1996 Zoster Vaccines (1 of 2) 02/20/2006 Annual Medicare Wellness Visit 02/20/2021 Dexa Scan (General) 02/20/2021 Pneumococcal Vaccine: 65+ Years (1 of 1 - PCV) 02/20/2021 COVID-19 Vaccine ( - 2023-2 5 season) 2024 Influenza Adult (#1) 2024 RSV Immunization or 60+ Years (1 - 1-dose 75+ series) 02/20/2031 DTaP, Tdap and Td Vaccines ( 3 - Td or Tdap) 03/06/2031 03/06/2021, 02/06/2019 Meningococcal Vaccine Aged Out No sudheer rosie eligible based on patient's age to complete this topic RSV Immunizations Under 20 Months Aged Out No longer eligible b ased on patient's age to complete this topic Insurance MEDICARE Care Teams Sewage Reticulation Drafting Officer Relationship Specialty Start Date End Date Rommel Lamas MD [address] [place] [id number] PCP - General INTERNAL MEDICINE 08/13/23 Rommel Lamas MD [address] [place] [phone] INTERNAL MEDICINE 08/13/23
--- OUTSIDE RECORDS SUMMARY | 2024-10-12 15:16 | XMS_ITS | Encounter Summary ---
Author Organization [facility] Address [address] [place] [address] Phone Care Team Providers Care Roadmaster Name Role Phone Rommel Lamas MD Primary Care Provider [phone] Reason for Visit * Diagnostic Imaging (Routine) - Closed Specialty Diagnoses / Procedures Referred By Tessa patel Referred To Contact Diagnoses Glaucoma suspect of both eyes Procedures OCT, Optic Nerve - OU - Both Eyes Ehsan Brown, OD [address] [facility] 6 [place] [address] Phone: tel: fax: [facility] (All Locations) Referral ID Status Reason Start Date Expiration Date Visits Re quested Visits Authorized [id number] Closed 02/05/2024 03/06/2025 1 1 Encounter Details Date Type Department Care Team (Late st Contact Info) Description 02/11/2024 11:00 AM CDT Imaging Exam [facility] 2[facility], [address] [place] [address] Glaucoma suspect of both eyes [...] Procedure Name Priority Date/Time Associated Diagnosis Comments OCT, OPTIC NERVE - OU - BOTH EYES Routine 02/11/2024 11:22 AM CDT Glaucoma suspect of both eyes documented in this encounter Results * OCT, Optic Nerve - OU - Both Eyes (02/11/2024 11:22 AM CDT) RNFL OS 94 micrometers CONTINUUM RNFL OD 100 micrometers CONTINUUM Anatomical Region Laterality Modality Head Other Narrative 02/11/2024 12:23 PM CDT Right Eye Reliability was good. Temporal progression was stable. Temporal thickness was showing abnormal thickness. Superior progression was stable. Superior thickness was normal. Nasal progression was stable. Nasal thickness was showing abnormal thickness. Inferior progression was stable. Inferior thickness was normal. Average RNFL thickness 100 micrometers. Left Eye Reliability was good. Temporal progression was stable. Temporal thickness was showing abnormal thickness. Superior progression was stable. Superior thickness was normal. Nasal progression was stable. Nasal thickness was normal. Inferior progression was stable. Inferior thickness was normal. Average RNFL thickness 94 micrometers. Ehsan Brown OD OPHTH TOMOGRAPHY Final Resul t documented in this encounter Visit Diagnoses Diagnosis Glaucoma suspect of both eyes Unspecified preglaucoma documented in this encounter Care Teams Roadmaster Relationship Specialty Start Date End Date Rommel Lamas MD [address] [facility] [address] [place] [address] PCP - General Internal Medicine 07/09/22 documented as of this encounter
--- OUTSIDE RECORDS SUMMARY | 2024-10-12 15:16 | XMS_ITS | Referral Summary ---
Author Organization [facility] Address [address] [place] [address] Care Team Providers Care Wood Preparation Supervisor Name Role Phone Rommel Lamas MD Primary Care Provider [phone] Allergies No known active allergies Medications azelastine (ASTELIN) 137 mcg (0.1 %) nasal spray 2 Active cefdinir (OMNICEF) 300 mg capsule Take 300 mg by mouth every 12 (twelve) hours 2 Active latanoprost (XALATAN) 0.005 % ophthalmic solutionIndicat ions:Glaucoma suspect of both eyes Administer 1 drop into both eyes nightly 7.5 mL 3 4 Active Active Problems Problem Noted Date Diagnosed Date 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 Orellana as scheduled. Assessment & Plan (09/03/2022 9:47 PM SUPERVISOR INTELLIGENCE ANALYST): F/U with Dr. Orellana as scheduled. Glaucoma suspect of both eyes 08/20/2022 Assessment & Plan (11/06/2022 7:54 AM SUPERVISOR INTELLIGENCE ANALYST): Tmax 24 both eyes (OU) in April 2022, timolol initiated by Dr. Orellana. intraocular pressure (IOP) 16-22 with narrow angles, not occludable Thin CCT Nl nerve fiber layer (NFL) and essentially full Lin visual field (HVF) Hx of steroid use Now off meds and no steroid exposure- intraocular pressure (IOP) upper 20s to 30 left eye (OS) Will now initiate trial of latanoprost both eyes (OU) q day Pt has appt with Dr. Orellana in 6 wks- will review this information and then schedule next appt Pt requested to also call with report Assessment & Plan (09/03/2022 9:46 PM SUPERVISOR INTELLIGENCE ANALYST): Referred by Dr. Flores for glc eval- narrow angles Tmax 24 both eyes (OU) in April 2022, timolol initiated by Dr. Orellana. intraocular pressure (IOP) 16-22 with narrow angles, not occludable Thin CCT Nl nerve fiber layer (NFL) and essentially full OCT Noted hx of steroid use this summer with poison valencia treatment. ? Efficacy of timolol Hold x 1 month prior to next visit to assess baseline intraocular pressure (IOP) and determine if tx is recommended. Discussed with pt Assessment & Plan (08/20/2022 2:58 PM SUPERVISOR INTELLIGENCE ANALYST): With possible narrow angle component - unsure if RVA injections causing possible increased IOP ONH today healthy OU, healthy NRR 360 s hemes / notches HVF OD WNL / OS non specific changes possible from GCC changes OCT WNL OU, heavy GCC loss OS (OHx of wet AMD / laser / ongoing injections) Will refer for PI eval, possible IOP increase after DFE/injections ? All imaging reassuring today, patient is not having problems with timolol BID at this time - OK with continuing Plan: PI eval with Dr. Van Continue timolol BID OS Social History Tobacco Use Types Packs/Day Years Used Date Smoking Tobacco: Unknown Tobacco Cessation:Counseling Given: Not Answered Comments Unknown Sex and Gender Information Value Date Recorded Sex Assigned at Not on file Legal Sex Female 3:06 PM CDT Gender Identity Not on file Sexual Orientation Not on file Plan of Treatment Not on file Insurance MEDICARE [employer] Care Teams Wood Preparation Supervisor Relationship Specialty Start Date End Date Rommel Lamas MD [address] [facility] [address] [place] [address] PCP - General Internal Medicine 07/09/22
--- OUTSIDE RECORDS SUMMARY | 2024-10-12 15:16 | XMS_ITS | Clinical Summary ---
Author Organization [facility] Address [address] [place] [address] Care Team Providers Care Cutting Machine Offbearer Name Role Phone Rommel Lamas MD Primary Care Provider [phone] Allergies No known active allergies Medications azelastine [...] 09/03/2022 Assessment & Plan (11/06/2022 7:53 AM HAND TOOL LAPPER): F/U with Dr. Orellana as scheduled. Assessment & Plan (09/03/2022 9:47 PM HAND TOOL LAPPER): F/U with Dr. Orellana as scheduled. Glaucoma suspect of both eyes 08/20/2022 Assessment & Plan (11/06/2022 7:54 AM HAND TOOL LAPPER): Tmax 24 both eyes (OU) in April [...] report Assessment & Plan (09/03/2022 9:46 PM HAND TOOL LAPPER): Referred by Dr. Flores for glc eval- [...] pt Assessment & Plan (08/20/2022 2:58 PM HAND TOOL LAPPER): With possible narrow angle component - unsure [...] time - OK with continuing Plan: PI evjuany with Dr. Van Continue timolol BID OS Medical History Medical History Date Comments Cataract Ocular Hypertension; Left Eye Macular degeneration Family History Medical History Relation Name Comments Macular degeneration Father Glaucoma Neg Hx Relation Name Status Comments Father Social History Tobacco Use Types Packs/Day Years Used Date Smoking Tobacco: Unknown Tobacco Cessation:Counseling Given: Not Answered Comments Unknown Sex and Gender Information Value Date Recorded Sex Assigned at Not on file Legal Sex Female 3:06 PM CDT Gender Identity Not on file Sexual Orientation Not on file Obstetrics History Plan of Treatment Health Maintenance Due Date Last Done Comments Breast Cancer Screening-Mammogram 1955 Colon Cancer Screening-Colonoscopy 1956 Depression Screening 1956 Fall Risk Assessment 1955 Hepatitis C Screening 1956 Osteoporosis Screening-Bone Density Scan 1955 Hepatitis B Screening 02/20/1974 Zoster Vaccine (1 of 2) 02/20/2006 Pneumococcal vaccine 65+ (1 of 1 - PCV) 02/20/2021 Well Visit 65+ 02/20/2021 Influenza Vaccine (#1) 2024 DTaP/Tdap/Td Vaccine (3 - Td or Tdap) 03/06/2031, 02/06/2019 Insurance MEDICARE [employer] Care Teams Cutting Machine Offbearer Relationship Specialty Start Date End Date Rommel Lamas MD [address] [place] [address] PCP - General Internal Medicine 07/09/22
--- OUTSIDE RECORDS SUMMARY | 2024-10-12 15:16 | XMS_ITS | Encounter Summary ---
Author Organization [facility] Address [address] [place] [address] Phone Care Team Providers Care Upholstery Mechanic Name Role Phone Rommel Lamas MD Primary Care Provider [phone] Reason for Referral * Diagnostic Imaging (Routine) - Closed Specialty Diagnoses / Procedures Referred By Tessa patel Referred To Contact Diagnoses Glaucoma suspect of both eyes Procedures Lin Visual Field - OU - Both Eyes Ehsan Brown, OD [address] [facility] [address] [place] [address] Phone: tel: fax: [facility] (All Locations) Referral ID Status Reason Start Date Expiration Date Visits Re quested Visits Authorized [id number] Closed 02/05/2024 03/06/2025 1 1 * Diagnostic Imaging (Routine) - Closed Specialty Diagnoses / Procedures Referred By Tessa patel Referred To Contact Diagnoses Glaucoma suspect of both eyes Procedures OCT, Optic Nerve - OU - Both Eyes Ehsan Brown, OD [address] [facility] [address] [place] [address] Phone: tel: fax: [facility] (All Locations) Referral ID Status Reason Start Date Expiration Date Visits Re quested Visits Authorized [id number] Closed 02/05/2024 03/06/2025 1 1 Encounter Details Date Type Department Care Team (Late st Contact Info) Description 02/11/2024 11:15 AM CDT Office Visit [facility] Ophthalmology [address] [facility] 2nd Floor, [address] [place] [address] Ehsan Brown, OD [address] [facility] [address] [place], [place] [id number] Glaucoma suspect of both eyes (Primary Dx) Social History Tobacco Use Types Packs/Day Years Used Date Smoking Tobacco: Unknown Comments Unknown Sex and Gender Information Value Date Recorded Sex Assigned at Not on file Legal Sex Female 3:06 PM CDT Gender Identity Not on file Sexual Orientation Not on file documented as of this encounter Ordered Prescriptions Prescription Sig Dispense Quantity Refills Last Filled Start Date End Date latanoprost (XALATAN) 0.005 % ophthalmic solutionIndication s:Glaucoma suspect of both eyes Administer 1 drop into both eyes nightly 7.5 mL 3 02/11/2024 documented in this encounter Progress Notes * Ehsan Brown, OD - 02/11/2024 11:15 AM CDT Assessment/Plan Diagnoses and all orders for this visit: Glaucoma suspect of both eyes (Primary) Intraocular pressure (IOP) stable Left eye (OS)>right eye (OD) Appears likely to be OHTN left eye (OS)>right eye (OD) with no visual field (VF) changes OCT, Optic Nerve - OU - Both Eyes; Stable Lin Visual Field - OU - Both Eyes; Normal Cont latanoprost (XALATAN) 0.005 % ophthalmic solution; Administer 1 drop into both eyes nightly RTC 1 year Lin visual field (HVF) 24-2. OCT RNFL both eyes (OU) Cont [facility] documented in this encounter Plan of Treatment Not on file documented as of this encounter Results * OCT, Optic Nerve [...] Brown OD OPHTH TOMOGRAPHY Final Resul t * Lin Visual Field - OU - [...] -1.41 db. Pattern Deviation was 1.40 db. us Ehsan Brown OD OPHTH VISUAL FIELD Final Res ult documented in this encounter Visit Diagnoses Diagnosis Glaucoma suspect of both eyes Unspecified preglaucoma Glaucoma suspect of both eyes Unspecified preglaucoma Glaucoma suspect of both eyes- Primary Unspecified preglaucoma documented in this encounter Discontinued Medications Medication Sig Discontinue Reason Start Date End Da te latanoprost (XALATAN) 0.005 % ophthalmic solution Administer 1 drop into both eyes nightly Duplicate order 11/05/2022 02/11/2024 documented as of this encounter Eye Exam Visual Acuity (Snellen - Linear) Right eye Left eye Dist cc 20/20 20/40 +1 Dist ph cc 20/30 -1 Correction: Glasses Tonometry (Applanation, 11:35 AM) Right eye Left eye Pressure 17 21 Pupils Dark Light Right eye 3 2.5 Left eye 3 2.5 Visual Moncada See Lin visual field (HVF) Extraocular Movement Right eye Left eye Full Full Neuro/Psych Oriented x3: Yes Mood/Affect: Normal External Exam Right eye Left eye External Normal Normal Slit Lamp Exam Right eye Left eye Lids/Lashes Normal Normal Conjunctiva/Sclera White and quiet White and rachel et Cornea Clear Clear Anterior Chamber Deep and quiet Deep and quiet Iris Round and reactive Round and priscilla ctive Lens 1+ Nuclear sclerosis 1+ Nuclear sclerosis Anterior Vitreous Normal Normal Fundus Exam Right eye Left eye Disc Normal Normal C/D Ratio 0.3 0.5 Care Teams Upholstery Mechanic Relationship Specialty Start Date End Date Rommel Lamas MD [address] [facility] [address] [place] [address] PCP - General Internal Medicine 07/09/22 documented as of this encounter
--- OUTSIDE RECORDS SUMMARY | 2024-10-12 15:16 | XMS_ITS | Encounter Summary ---
Author Organization [facility] Address [address] [place] [address] Phone Care Team Providers Care Ui Ux Web Developer Name Role Phone Rommel Lamas MD Primary Care Provider [phone] Encounter Details Date Type Department Care Team (Late st Contact Info) Description 01/21/2024 Telephone [facility] Ophthalmology [address] [facility] [place] [address] Tri Van MD [address] [facility] DEPT OPHTHALMOLOGY, [facility] [address] [place] [address] Social History Tobacco Use Types Packs/Day Years Used Date Smoking Tobacco: Unknown Comments Unknown Sex and Gender Information Value Date Recorded Sex Assigned at Not on file Legal Sex Female 3:06 PM CDT Gender Identity Not on file Sexual Orientation Not on file documented as of this encounter Miscellaneous Notes * Telephone Encounter - Marlys Au COA - 01/21/2024 3:57 PM CDT Pt lost to FU, called and scheduled pt for next available with optometry per CJS. documented in this encounter Plan of Treatment Not on file documented as of this encounter Visit Diagnoses Not on filedocumented in this encounter Care Teams Ui Ux Web Developer Relationship Specialty Start Date End Date Rommel Lamas MD [address] [place] [address] PCP - General Internal Medicine 07/09/22 documented as of this encounter
--- OUTSIDE RECORDS SUMMARY | 2024-10-12 15:16 | XMS_ITS | Encounter Summary ---
Author Organization [facility] Address [address] [facility] [place] [address] [place] [address] Care Team Providers Care Physical Aerodynamicist Name Role Phone Rommel Lamas MD Unavailable Rommel Lamas MD Primary Care Provider [phone] Encounter Details Date Type Department Care Team (Latest Contact Info) Description 09/19/2023 Travel Social History Tobacco Use Types Packs/Day Years [...] on filedocumented in this encounter Care Teams Physical Aerodynamicist Relationship Specialty Start Date End Date Rommel Lamas MD [address] [place] [phone] PCP - General INTERNAL MEDICINE 08/13/23 Rommel Lamas MD [address] [place] [phone] INTERNAL MEDICINE 08/13/23 documented as of this encounter
--- OUTSIDE RECORDS SUMMARY | 2024-10-12 15:17 | XMS_ITS | Encounter Summary ---
Author Organization [facility] Address [address] [place] [address] Phone Care Team Providers Care Cardiac Cath Tech Name Role Phone Rommel Lamas MD Primary Care Provider [phone] Reason for Visit * Reason Onset Date Comments Scheduling Appointments 07/09/2022 Encounter Details Date Type Department Care Team (Late st Contact Info) Description 07/09/2022 Telephone [facility] Ophthalmology [address] [place] [id number] Tri Van MD [address] [facility] DEPT OPHTHALMOLOGY, [facility] [address] [place] [address] Scheduling Appointments Social History Tobacco Use Types Packs/Day Years Used Date Smoking Tobacco: Never Assessed Comments Unknown Sex and Gender Information Value Date Recorded Sex Assigned at Not on file Legal Sex Female 3:06 PM CDT Gender Identity Not on file Sexual Orientation Not on file documented as of this encounter Miscellaneous Notes * Telephone Encounter - Marlys Au COA - 07/18/2022 9:30 AM CDT Called pt back to RS her appt to include testing. Per Dr. Van pt should be seen by someone with testing within 1-2 months of starting Timolol. Arranged for pt to see Dr. Flores with 24-2 OU and OCT RNFL with an IOP check on 08/[address] Van is also in clinic. Dr. Flores will refer to or another patient service specialist to treat if IOP is still too high or pt has shown any damage on testing. Pt agreeable to plan and verbalized understanding of appointment details, date, time,and location. Notified Dr. Van of plan and will adjust as she see fit * Telephone Encounter - Marlys Au COA - 07/17/2022 2:10 PM CDT Called pt to see who she saw other then Dr. Orellana, pt stated she was seen yearly at [facility] and she has never had high pressure before. This time when she had the IOP of 30 was the first time atDr. Orellana who she has been seeing regularly for her retina. States she has been using Timolol 0.5% BID OS faithfully since it was prescribed. Testing needs to be added to her appointment and need ok from Dr. Van on appt, date and time and provider. Pt may possibly be rescheduled to our Optometry team with testing to evaluate and then possibly if appropriate scheduled with Dr. Van * Telephone Encounter - Og Balderas - 07/09/2022 9:25 AM CDT New PT Scheduled: Who pt is being referred to: Dr. Tri Van Reason/Diagnoses: Glaucoma OE, Mapping Referring doctor: Pancho Orellana Referring doctor contact information: [facility] [address] [place] [id number] How soon: Next Avail Pt's appt scheduled for: 08/13/2022 [place] Transfer of care or 2nd opinion? TOF Were Notes requested? Yes Additional comments: Fax Number given for to send over notes prior to appt. documented in this encounter Plan of Treatment Not on file documented as of this encounter Visit Diagnoses Not on filedocumented in this encounter Care Teams Cardiac Cath Tech Relationship Specialty Start Date End Date Rommel Lamas MD [address] [facility] [address] [place] [address] PCP - General Internal Medicine 07/09/22 documented as of this encounter
--- OUTSIDE RECORDS SUMMARY | 2024-10-12 15:17 | XMS_ITS | Encounter Summary ---
Author Organization [facility] Address [address] [place] [address] Phone Care Team Providers Care Foreign Trade Teacher Name Role Phone Rommel Lamas MD Primary Care Provider [phone] Reason for Visit * Reason Onset Date Comments FYI 12/17/2022 Encounter Details Date Type Department Care Team (Late st Contact Info) Description 12/17/2022 Telephone [facility] [place], [place] [phone] Tri Van MD [address] [facility] DE[facility] OPHTHALMOLOGY, [facility] [address] [place], [place] [phone] FYI Social History Tobacco Use Types Packs/Day Years Used Date Smoking Tobacco: Unknown Comments Unknown Sex and Gender Information Value Date Recorded Sex Assigned at Not on file Legal Sex Female 3:06 PM CDT Gender Identity Not on file Sexual Orientation Not on file documented as of this encounter Miscellaneous Notes * Telephone Encounter - Marlys Au COA - 12/18/2022 1:24 PM CST Called pt and scheduled her per Dr. Van's instructions for a 3 month Tech only IOP Check. Pt verbalized understanding of appointment details, date, time, and location. Pt also wanted me to tell Dr. Van that she has some fluid under her Retina and they are changing her Lucentis injections to another medication that will hopefully last longer,right now she is coming back in 4 weeks and they are hoping to push out her time between injections to 8 weeks, unsureof the name but when asked if it was Avastin she said that name might be it. Told her I would update Dr. Van about that as well. ETCHER * Telephone Encounter - Lance Olguin - 12/17/2022 12:11 PM CST Pt called stating Dr. Van had pt start new gtts at last visit, pt IOP checked w/ [facility], OD 12 OS 14 12/17/22 11:45am. FYI. ETCHER documented in this encounter Plan of Treatment Not on file documented as of this encounter Visit Diagnoses Not on filedocumented in this encounter Care Teams Foreign Trade Teacher Relationship Specialty Start Date End Date Rommel Lamas MD [address] [facility] [address] [place], [place] [id number] PCP - General Internal Medicine 07/09/22 documented as of this encounter
--- OUTSIDE RECORDS SUMMARY | 2024-10-12 15:17 | XMS_ITS | Encounter Summary ---
Author Organization [facility] Address [address] [place] [address] Phone Care Team Providers Care Business Law Professor Name Role Phone Rommel Lamas MD Primary Care Provider [phone] Reason for Visit * Reason Comments Glaucoma Encounter Details Date Type Department Care Team (Latest Contact Info) Description 11/05/2022 10:00 AM MANAGER QUALITY Office Visit [facility] Ophthalmology [address] [facility] 2nd Floor, [address] [place] [address] Tri Van MD [address] [facility] DEPT OPHTHALMOLOGY, [place] [address] [place] [address] Glaucoma suspect of both eyes (Primary Dx); Exudative age-related macular degeneration of left eye with active choroidal neovascularization (HCC) Social History Tobacco Use Types Packs/Day Years [...] End Date latanoprost (XALATAN) 0.005 % ophthalmic solution Administer 1 drop into both eyes nightly 2.5 mL 11 11/05/2022 4 documented in this encounter Progress Notes * Tri Van MD - 11/05/2022 10:00 AM CST Assessment/Plan Diagnoses and all orders for this visit: Glaucoma suspect of both eyes (Primary) Assessment & Plan: Tmax 24 both eyes (OU) in April [...] Pt requested to also call with report Exudative age-related macular degeneration of left eye with active choroidal neovascularization (HCC) Assessment & Plan: F/U with Dr. Orellana as scheduled. Other orders - latanoprost (XALATAN) 0.005 % ophthalmic solution; Administer 1 drop into both eyes nightly GER QUALITY documented in this encounter Miscellaneous Notes * Assessment & Plan Note - Tri Van MD - 11/06/2022 7:53 AM MANAGER QUALITY Associated Problem(s): Exudative age-related macular degeneration of left eye (HCC) F/U with Dr. Orellana as scheduled. GER QUALITY * Assessment & Plan Note - Tri Van MD - 11/06/2022 7:50 AM MANAGER QUALITY Associated Problem(s): Glaucoma suspect of both eyes Tmax 24 both eyes (OU) in April [...] Pt requested to also call with report GER QUALITY GER QUALITY documented in this encounter Plan of Treatment Not on file documented as of this encounter Visit Diagnoses Diagnosis Glaucoma suspect of both eyes- Primary Unspecified preglaucoma Exudative age-related macular degeneration of left eye with active choroidal neovascularization (HCC) documented in this encounter Discontinued Medications Medication Sig Discontinue Reason Start Date End Da te timolol (TIMOPTIC) 0.5 % ophthalmic solution Administer 1 drop into the left eye 2 (two) times a day Therapy completed 08/01/2022 11/06/2022 documented as of this encounter Eye Exam Visual Acuity (Snellen - Linear) Right eye Left eye Dist cc 20/20 20/50 Dist ph cc 20/40 +1 Correction: Glasses Tonometry #1 (Applanation, 10:52 AM) Right eye Left eye Pressure 20 25 Tonometry #2 (Applanation, 11:37 AM) Right eye Left eye Pressure 21 35 Tonometry #3 (Tonopen, 11:38 AM) Right eye Left eye Pressure 21 28 Pupils Dark Light Shape React APD Right eye 3 2.5 Round + None Left eye 3 2.5 Round + None Visual Moncada Right eye Left eye Full Full Extraocular Movement Right eye Left eye Full [...] Lens 1+ Nuclear sclerosis 1+ Nuclear sclerosis Fundus Exam Right eye Left eye Posterior Vitreous Normal Normal Disc Normal Normal C/D Ratio 0.3 0.5 Care Teams Business Law Professor Relationship Specialty Start Date End Date Rommel Lamas MD [address] [facility] [address] [place] [address] PCP - General Internal Medicine 07/09/22 documented as of this encounter
--- OUTSIDE RECORDS SUMMARY | 2024-10-12 15:17 | XMS_ITS | Encounter Summary ---
Author Organization [facility] Address [address] [place] [address] Phone Care Team Providers Care Advertising Sales Consultant Name Role Phone Rommel Lamas MD Primary Care Provider [phone] Reason for Visit * Reason Onset Date Comments Medication Problem 12/11/2022 Encounter Details Date Type Department Care Team (Late st Contact Info) Description 12/11/2022 Telephone [facility] Ophthalmology [facility] [place], [place] [phone] Tri Van MD [address] [facility] DEPT OPHTHALMOLOGY, [facility] [address] [place], [place] [phone] Medication Problem Social History Tobacco Use Types Packs/Day Years Used Date Smoking Tobacco: Unknown Comments Unknown Sex and Gender Information Value Date Recorded Sex Assigned at Not on file Legal Sex Female 3:06 PM CDT Gender Identity Not on file Sexual Orientation Not on file documented as of this encounter Miscellaneous Notes * Telephone Encounter - Marlys Au COA - 12/11/2022 2:42 PM CST Called pt and per Dr. Keith advice recommended that she does not use Flonase as a first choice. Ptstates Astelin is also an option, told her Astelin is fine as it does not contain a steroid that could raise her IOP. Told her to call if nothing else works and then we could monitor her IOP as she uses Flonase. AINABILITY MANAGER * Telephone Encounter - Abimbola De La Paz Drea - 12/11/2022 1:02 PM SUSTAINABILITY MANAGER Pt called in to verify that is is ok to take Flonase due to her ENT Dr states that the Flonase may increase pressure. Pt can be reached at [phone] AINABILITY MANAGER documented in this encounter Plan of Treatment Not on file documented as of this encounter Visit Diagnoses Not on filedocumented in this encounter Care Teams Advertising Sales Consultant Relationship Specialty Start Date End Date Rommel Lamas MD [address] [facility] [address] [place] [id number] PCP - General Internal Medicine 07/09/22 documented as of this encounter
--- OUTSIDE RECORDS SUMMARY | 2024-10-12 15:17 | XMS_ITS | Encounter Summary ---
Author Organization [facility] Address [address] [place] [address] Phone Care Team Providers Care General Operations Agent Name Role Phone Rommel Lamas MD Primary Care Provider [phone] Encounter Details Date Type Department Care Team (Late st Contact Info) Description 03/18/2023 11:00 AM CDT Imaging Exam [facility] Ophthalmology [address] [place] [address] 2nd Floor, [address] [place] [address] Social History Tobacco Use Types Packs/Day Years Used Date Smoking Tobacco: Unknown Comments Unknown Sex and Gender Information Value Date Recorded Sex Assigned at Not on file Legal Sex Female 3:06 PM CDT Gender Identity Not on file Sexual Orientation Not on file documented as of this encounter Progress Notes * Tri Van MD - 03/18/2023 11:00 AM CDT Reviewed intraocular pressure (IOP) on latanoprost CPM for now F/U 4-5 months with Lin visual field (HVF) and OCT with ca documented in this encounter Plan of Treatment Not on file documented as of this encounter Visit Diagnoses Not on filedocumented in this encounter Eye Exam Tonometry #1 (Applanation, 11:04 AM) Right eye Left eye Pressure 22 22 Tonometry #2 (Applanation, 11:04 AM) Right eye Left eye Pressure 20 22 Tonometry #3 (Tonopen, 11:06 AM) Right eye Left eye Pressure 15 20 Care Teams General Operations Agent Relationship Specialty Start Date End Date Rommel Lamas MD [address] [facility] [address] [place] [address] PCP - General Internal Medicine 07/09/22 documented as of this encounter
--- OUTSIDE RECORDS SUMMARY | 2024-10-12 15:17 | XMS_ITS | Encounter Summary ---
Author Organization [facility] Address [address] [place] [address] Phone Care Team Providers Care Brick Mason Name Role Phone Rommel Lamas MD Primary Care Provider [phone] Reason for Referral * Diagnostic Imaging (Routine) - Closed Specialty Diagnoses / Procedures Referred By Tessa patel Referred To Contact Diagnoses Ocular hypertension, left Procedures OCT, Optic Nerve - OU - Both Eyes Tushar Flores, OD Phone: tel: fax: [facility] (All Locations) Referral ID Status Reason Start Date Expiration Date Visits Re quested Visits Authorized [id number] Closed 08/20/2022 09/19/2023 1 1 AM TRIMMING MACHINE OPERATOR * Diagnostic Imaging (Routine) - Closed Specialty Diagnoses / Procedures Referred By Tessa patel Referred To Contact Diagnoses Ocular hypertension, left Procedures Lin Visual Field - OU - Both Eyes Tushar Flores, OD Phone: tel: fax: [facility] (All Locations) Referral ID Status Reason Start Date Expiration Date Visits Re quested Visits Authorized [id number] Closed 08/20/2022 09/19/2023 1 1 AM TRIMMING MACHINE OPERATOR Encounter Details Date Type Department Care Team (Late st Contact Info) Description 08/20/2022 1:30 PM INSEAM TRIMMING MACHINE OPERATOR Office Visit [facility] Ophthalmology [address] [place] [address] 2nd Floor, [address] [place] [address] Tushar Flores, OD [address] [facility] [address] DEPT OPHTHALMOLOGY, [place] [address] [place] [address] Ocular hypertension, left (Primary Dx) Social History Tobacco Use Types Packs/Day Years Used Date Smoking Tobacco: Never Assessed Comments Unknown Sex and Gender Information Value Date Recorded Sex Assigned at Not on file Legal Sex Female 3:06 PM CDT Gender Identity Not on file Sexual Orientation Not on file documented as of this encounter Patient Instructions * Patient Instructions* Tushar Flores, OD - 08/20/2022 1:30 PM INSEAM TRIMMING MACHINE OPERATOR AM TRIMMING MACHINE OPERATOR documented in this encounter Progress Notes * Tushar Flores, OD - 08/20/2022 1:30 PM CST A&P/Orders Assessment/Plan Diagnoses and all orders for this visit: Ocular hypertension, left (Primary) Assessment & Plan: With possible narrow angle component - unsure if RVA injections causing possible increased IOP ONH today healthy OU, healthy NRR 360 s hemes / notches HVF OD WNL / OS non specific changes possible from GCC changes OCT WNL OU, heavy GCC loss OS (OHx of wet AMD / laser / ongoing injections) Will refer for PI jennifer, possible IOP increase after DFE/injections ? All imaging reassuring today, patient is not having problems with timolol BID at this time - OK with continuing Plan: PI eval with Dr. Van Continue timolol BID OS Orders: - Lin Visual Field - OU - Both Eyes - OCT, Optic Nerve - OU - Both Eyes Lin Visual Field - OU - Both Eyes Component Value Flag Ref Range Units Status Pattern Deviation OS 3.10 db Pattern Deviation OD 1.84 db Mean Deviation OS -2.20 db Mean Deviation OD -0.45 db Right Eye Fixation was good. Cooperation was good. Reliability was good. Findings include normal observations. Mean Deviation was -0.45 db. Pattern Deviation was 1.84 db. Left Eye Fixation was good. Cooperation was good. Reliability was good. Findings include non-specific defects. Mean Deviation was -2.20 db. Pattern Deviation was 3.10 db. Notes Non specific OU, with changes OS that could be attributed to GCC/macular changes Overall non-glaucomatous in nature OCT, Optic Nerve - OU - Both Eyes Component Value Flag Ref Range Units Status RNFL OS 95 micrometers RNFL OD 92 micrometers Right Eye Reliability was good. Temporal thickness was normal. Superior thickness was normal. Nasal thicknesswas normal. Inferior thickness was normal. Average RNFL thickness 92 micrometers. Left Eye Reliability was good. Temporal thickness was normal. Superior thickness was normal. Nasal thicknesswas normal. Inferior thickness was normal. Average RNFL thickness 95 micrometers. Notes No glaucomatous changes noted OU 2021 SNIT OD 96 / 77 / 108 / 89 OS 107 / 83 / 107 / 83 PLAN FOR NEXT VISIT Return if symptoms worsen or fail to improve, for scheduled appointments. AM TRIMMING MACHINE OPERATOR documented in this encounter Miscellaneous Notes * Assessment & Plan Note - Tushar Flores, OD - 08/20/2022 2:52 PM INSEAM TRIMMING MACHINE OPERATOR Associated Problem(s): Glaucoma suspect of both eyes With possible narrow angle component - unsure if RVA injections causing possible increased IOP ONH today healthy OU, healthy NRR 360 s hemes / notches HVF OD WNL / OS non specific changes possible from GCC changes OCT WNL OU, heavy GCC loss OS (OHx of wet AMD / laser / ongoing injections) Will refer for PI jennifer, possible IOP increase after DFE/injections ? All imaging reassuring today, patient is not having problems with timolol BID at this time - OK with continuing Plan: PI jennifer with Dr. Van Continue timolol BID OS AM TRIMMING MACHINE OPERATOR documented in this encounter Plan of Treatment Not on file documented as of this encounter Procedures Procedure Name Priority Date/Time Associated Diagnosis Comments OCT, OPTIC NERVE - OU - BOTH EYES Routine 08/20/2022 2:58 PM INSEAM TRIMMING MACHINE OPERATOR Ocular hypertension, left LIN VISUAL FIELD - OU - BOTH EYES Routine 08/20/2022 2:57 PM INSEAM TRIMMING MACHINE OPERATOR Ocular hypertension, left documented in this encounter Results * OCT, Optic Nerve - OU - Both Eyes (08/20/2022 2:58 PM INSEAM TRIMMING MACHINE OPERATOR) RNFL OS 95 micrometers CONTINUUM RNFL OD 92 micrometers CONTINUUM Anatomical Region Laterality Modality Head Optical Coherenc e Tomography Narrative 08/20/2022 2:58 PM INSEAM TRIMMING MACHINE OPERATOR Right Eye Reliability was good. Temporal thickness was normal. Superior thickness was normal. Nasal thickness was normal. Inferior thickness was normal. Average RNFL thickness 92 micrometers. Left Eye Reliability was good. Temporal thickness was normal. Superior thickness was normal. Nasal thickness was normal. Inferior thickness was normal. Average RNFL thickness 95 micrometers. Notes No glaucomatous changes noted OU 2021 SNIT OD 96 / 77 / 108 / 89 OS 107 / 83 / 107 / 83 Tushar Flores OD OPHTH TOMOGRAPHY Final Re sult * Lin Visual Field - OU - Both Eyes (08/20/2022 2:57 PM INSEAM TRIMMING MACHINE OPERATOR) Pattern Deviation OS 3.10 db CONTINUUM Pattern Deviation OD 1.84 db CONTINUUM Mean Deviation OS -2.20 db CONTINUUM Mean Deviation OD -0.45 db CONTINUUM Anatomical Region Laterality Modality Head Visual Field Narrative 08/20/2022 2:57 PM INSEAM TRIMMING MACHINE OPERATOR Right Eye Fixation was good. Cooperation was good. Reliability was good. Findings include normal observations. Mean Deviation was -0.45 db. Pattern Deviation was 1.84 db. Left Eye Fixation was good. Cooperation was good. Reliability was good. Findings include non-specific defects. Mean Deviation was -2.20 db. Pattern Deviation was 3.10 db. Notes Non specific OU, with changes OS that could be attributed to GCC/macular changes Overall non-glaucomatous in nature us Tushar Flores OD OPHTH VISUAL FIELD Final Result documented in this encounter Visit Diagnoses Diagnosis Ocular hypertension, left- Primary documented in this encounter Discontinued Medications Medication Sig Discontinue Reason Start Date End Da te predniSONE (DELTASONE) 20 mg tablet Therapy completed 06/11/2022 08/20/2022 documented as of this encounter Historical Medications * This list may reflect changes made after this encounter. azelastine (ASTELIN) 137 mcg (0.1 %) nasal spray 06/11/2022 timolol (TIMOPTIC) 0.5 % ophthalmic solution Administer 1 drop into the left eye 2 (two) times a day 08/01/2022 3 predniSONE (DELTASONE) 20 mg tablet 06/11/2022 2 added in this encounter Eye Exam Visual Acuity (Snellen - Linear) Right eye Left eye Dist cc 20/20 20/30 + Correction: Glasses Tonometry (Applanation, 2:10 PM) Right eye Left eye Pressure 21 23 Gonioscopy Right eye Left eye Temporal 1--3 1--3 Nasal 2--3 2--3 Superior 1--3 1--3 Inferior 2--3 2--3 No PAS 360, mild-moderate pigment 360 Opens to grade 3 with indentation OU Pupils Pupils Right eye PERRL Left eye PERRL Visual Moncada Right eye Left eye Full Full Extraocular Movement Right eye Left eye Full, Ortho Full, Ortho Neuro/Psych Oriented x3: Yes Color Poor color vision OU, OS >> OD - likely from past macular changes External Exam Right eye Left eye External Normal Normal Slit Lamp Exam Right eye Left eye Lids/Lashes Normal Normal Conjunctiva/Sclera White and quiet White and rachel et Cornea Clear Clear Anterior Chamber Deep and quiet Deep and quiet Iris Round and reactive Round and priscilla ctive Lens 1+ Nuclear sclerosis 1+ Nuclear sclerosis Vitreous Normal Normal Fundus Exam Right eye Left eye Disc Normal Normal C/D Ratio 0.3 0.5 Care Teams Brick Mason Relationship Specialty Start Date End Date Rommel Lamas MD [address] [facility] [address] [place], [place] [id number] PCP - General Internal Medicine 07/09/22 documented as of this encounter
--- OUTSIDE RECORDS SUMMARY | 2024-10-12 15:17 | XMS_ITS | Encounter Summary ---
Author Organization [facility] Address [address] [place] [address] Phone Care Team Providers Care Occupational Therapy Teacher Name Role Phone Rommel Lamas MD Primary Care Provider [phone] Reason for Visit * Reason Comments Ocular Hypertension Encounter Details Date Type Department Care Team (Latest Contact Info) Description 09/03/2022 11:30 AM POLISH MAKER Office Visit [facility] Ophthalmology [address], [address] [place] [address] Tri Van MD [facility] DEPT OPHTHALMOLOGY, [place] [address] Glaucoma suspect of both eyes (Primary Dx); [...] Progress Notes * Tri Van MD - 09/03/2022 11:30 AM CST Assessment/Plan Diagnoses and all orders for this visit: Glaucoma suspect of both eyes (Primary) Assessment & Plan: Referred by Dr. Flores for glc eval- [...] if tx is recommended. Discussed with pt Exudative age-related macular degeneration of left eye with active choroidal neovascularization (HCC) Assessment & Plan: F/U with Dr. Orellana as scheduled. SH MAKER documented in this encounter Miscellaneous Notes * Assessment & Plan Note - Tri Van MD - 09/03/2022 9:46 PM POLISH MAKER Associated Problem(s): Exudative age-related macular degeneration of left eye (HCC) F/U with Dr. Orellana as scheduled. SH MAKER * Assessment & Plan Note - Tri Van MD - 09/03/2022 9:40 PM POLISH MAKER Associated Problem(s): Glaucoma suspect of both eyes Referred by Dr. Flores for glc eval- [...] if tx is recommended. Discussed with pt SH MAKER documented in this encounter Plan of Treatment Not on file documented as of this encounter Visit Diagnoses Diagnosis Glaucoma suspect of both eyes- Primary Unspecified preglaucoma Exudative age-related macular degeneration of left eye with active choroidal neovascularization (HCC) documented in this encounter Historical Medications * This list may reflect changes made after this encounter. cefdinir (OMNICEF) 300 mg capsule Take 300 mg by mouth every 12 (twelve) hours 08/03/2022 added in this encounter Eye Exam Visual Acuity (Snellen - Linear) Right eye Left eye Dist cc 20/20 -2 20/40 +2 Dist ph cc 20/30 +1 Correction: Glasses Tonometry (Applanation, 12:30 PM) Right eye Left eye Pressure 16 20 By CJS Pachymetry (09/03/2022) Right eye Left eye Thickness 535 516 Gonioscopy (Jimmy, four mirror) Right eye Left eye Temporal sl sl Nasal 1-2 1-2 Superior 1 1 Inferior 2-3 2-3 No peripheral anterior synechia (PAS), No appositional closure Neuro/Psych Oriented x3: Yes Mood/Affect: Normal Dilation Defer to MD External Exam Right eye Left eye External [...] Disc Normal Normal C/D Ratio 0.3 0.5 Wearing Rx Sphere Cylinder [place] Add Right eye -3.50 +0.75 092 +2.50 Left eye -3.75 +0.25 065 +2.50 Age: 0604/04/2021 Type: PAL/Daily Care Teams Occupational Therapy Teacher Relationship Specialty Start Date End Date Rommel Lamas MD [address] [facility] [address] [place] [address] PCP - General Internal Medicine 07/09/22 documented as of this encounter
== END 2024-10-05 10:31 | disposition home or self-care (01) ==
PROVIDERS: PCP Internal Medicine; Visit Provider Internal Medicine
DX: I82.C12 Acute embolism and thrombosis of left internal jugular vein (principal); R22.1 Localized swelling, mass and lump, neck; J02.9 Acute pharyngitis, unspecified
CPT/HCPCS: 36415; 70491; 85025; 85610; 85730; 87651; 93971; Q9967

== ENCOUNTER 2024-11-24 14:19 | Outpatient (CLI) | payer MEDICARE, SELFPAY ==
--- NOTE | ~2024-11-24 | XR_ITS ---
Clinical Indication: Cough PA and lateral views of the chest: Comparison: 06/11/2022 Findings: The lungs are clear, without evidence of focal consolidation or pleural effusion. Cardiome diastinal silhouette is within normal limits. Bones and soft tissues are unremarkable. Impression: Normal chest. Reviewed, dictated and finalized at location . MACEUTICAL LABORATORY TECHNICIAN Impression: Normal chest.
--- OUTSIDE RECORDS SUMMARY | 2024-11-24 15:08 | XMS_ITS | Clinical Summary ---
Author Organization [facility] Address [address] [place] [address] Care Team Providers Care Ethnology Professor Name Role Phone Rommel Lamas MD Primary Care Provider [phone] Allergies No known active allergies Medications azelastine (ASTELIN) 137 mcg (0.1 %) nasal spray 06/11/20 22 Active cefdinir (OMNICEF) 300 mg capsule Take 300 mg by mouth every 12 (twelve) hours 08/03/20 22 Active latanoprost (XALATAN) 0.005 % ophthalmic solutionIndica tions:Glaucoma suspect of both eyes INSTILL 1 DROP INTO EACH EYE NIGHTLY 7.5 mL 3 11/23/19 25 Active latanoprost (XALATAN) 0.005 % ophthalmic solutionIndica tions:Glaucoma suspect of both eyes Administer 1 drop into both eyes nightly 7.5 mL 3 02/11/20 24 025 Discontinued Active Problems Problem Noted Date Diagnosed Date Exudative age-related macular degeneration of le ft eye 09/03/2022 Assessment & Plan (11/06/2022 7:53 AM CARDIAC NURSE): F/U with Dr. Orellana as scheduled. Assessment & Plan (09/03/2022 9:47 PM CARDIAC NURSE): F/U with Dr. Orellana as scheduled. Glaucoma suspect of both eyes 08/20/2022 Assessment & Plan (11/06/2022 7:54 AM CARDIAC NURSE): Tmax 24 both eyes (OU) in April [...] report Assessment & Plan (09/03/2022 9:46 PM CARDIAC NURSE): Referred by Dr. Flores for glc eval- [...] pt Assessment & Plan (08/20/2022 2:58 PM CARDIAC NURSE): With possible narrow angle component - unsure if RVA injections causing possible increased IOP ONH today healthy OU, healthy NRR 360 s hemes / notches HVF OD WNL / OS non specific changes possible from GCC changes OCT WNL OU, heavy GCC loss OS (OHx of wet AMD / laser / ongoing injections) Will refer for DUNCAN rodriguez, possible IOP increase after DFE/injections ? All imaging reassuring today, patient is not having problems with timolol BID at this time - OK with continuing Plan: DUNCAN rodriguez with Dr. Van Continue timolol BID OS [...] Td or Tdap) 03/06/2031, 02/06/2019 Insurance MEDICARE [employer] Care Teams Ethnology Professor Relationship Specialty Start Date End Date Rommel Lamas MD [address] [facility] [address] [place], [place] [id number] PCP - General Internal Medicine 07/09/22
--- OUTSIDE RECORDS SUMMARY | 2024-11-24 15:08 | XMS_ITS | Referral Summary ---
Author Organization [facility] Address [address] [place] [address] Care Team Providers Care Respiratory Supervisor Name Role Phone Rommel Lamas MD Primary Care Provider [phone] Allergies No known active allergies Medications azelastine [...] 09/03/2022 Assessment & Plan (11/06/2022 7:53 AM EXPLOSIVES WORKER): F/U with Dr. Orellana as scheduled. Assessment & Plan (09/03/2022 9:47 PM EXPLOSIVES WORKER): F/U with Dr. Orellana as scheduled. Glaucoma suspect of both eyes 08/20/2022 Assessment & Plan (11/06/2022 7:54 AM EXPLOSIVES WORKER): Tmax 24 both eyes (OU) in April [...] report Assessment & Plan (09/03/2022 9:46 PM EXPLOSIVES WORKER): Referred by Dr. Flores for glc eval- [...] pt Assessment & Plan (08/20/2022 2:58 PM EXPLOSIVES WORKER): With possible narrow angle component - unsure [...] Plan of Treatment Not on file [place] [address] MEDICARE Setup Care Teams Respiratory Supervisor Relationship Specialty Start Date End Date Rommel Lamas MD [address] [facility] [address] [place] [address] PCP - General Internal Medicine 07/09/22
--- OUTSIDE RECORDS SUMMARY | 2024-11-24 15:08 | XMS_ITS | Clinical Summary ---
Author Organization [facility] Address [address] [place] [id number] Care Team Providers Care Chenille Machine Operator Name Role Phone Rommel Lamas MD Unavailable Rommel Lamas MD Primary Care Provider Social History Tobacco Use Types Packs/Day Years [...] of 1 - PCV) 02/20/2021 COVID-19 Vaccine (2023-2 5 season) 2024 Influenza Adult (#1) 2024 RSV Immunization or 60+ Years (1 - 1-dose 75+ series) 02/20/2031 DTaP, Tdap and Td Vaccines ( 3 - Td or Tdap) 03/06/2031 03/06/2021, 02/06/2019 Meningococcal B Vaccine Aged Out No l onger eligible based on patient's age to complete this topic Meningococcal Vaccine Aged Out No sudheer rosie eligible based on patient's age to complete this topic RSV Immunizations Under 20 Months Aged Out No longer eligible b ased on patient's age to complete this topic Insurance MEDICARE Care Teams Chenille Machine Operator Relationship Specialty Start Date End Date Rommel Lamas MD [address] [place] [id number] PCP - General INTERNAL MEDICINE 08/13/23 Rommel Lamas MD [address] [place] [id number] INTERNAL MEDICINE 08/13/23
== END 2024-11-24 14:20 | disposition home or self-care (01) ==
PROVIDERS: PCP Internal Medicine; Visit Provider Internal Medicine
DX: R05.9 Cough, unspecified (principal)
CPT/HCPCS: 71046